=== PATIENT | female | born 1935 | race Caucasian/White ===

== ENCOUNTER → 2024-06-25 | Outpatient (CLI) | payer MEDICARE ==
--- NOTE | 2024-06-25 12:38 | HMCIMG ---
CHEST 2VWS REASON: PLEURAL EFFUSION COMPARISON: None FINDINGS: Two views of the chest were obtained. There is bibasilar atelectasis. There are small bilateral pleural effusions best seen on the lateral view. Heart size is normal. There is no vascular congestion. Mediastinum and bony thorax appear unremarkable. IMPRESSION: 1. Small bilateral pleural effusions with bibasilar atelectasis.
== END | disposition home or self-care (01) ==
LOC: RAH 09:37
PROVIDERS: ATTEND Internal Medicine
DX: J90 Pleural effusion, not elsewhere classified (principal); J98.11 Atelectasis
CPT/HCPCS: 71046

== ENCOUNTER → 2024-07-10 | Outpatient (CLI) | payer MEDICARE ==
[~2024-07-10] MED LIST: ATOR40TA69 PO; CALC-190 PO; CYAN100084 PO; EVER10TA PO; EZET10TA48 PO; LEVO25CA4 PO; PANT40TA PO; POTA-192 PO
--- NOTE | 2024-07-10 09:14 | HMCIMG ---
CHEST 2VWS HISTORY: Malignant primary neoplasm COMPARISON: 06/25/2024 FINDINGS: Frontal and lateral projections of the chest were obtained. Bilateral lower lung pulmonary infiltrates are seen. The heart is not enlarged. Aortic calcifications are seen. Degenerative changes are seen of the thoracolumbar spine. IMPRESSION: 1. Bilateral lower lung pulmonary infiltrates are seen.
== END | disposition home or self-care (01) ==
LOC: RAH 08:19
PROVIDERS: ATTEND Internal Medicine
DX: R91.8 Other nonspecific abnormal finding of lung field (principal); C80.1 Malignant (primary) neoplasm, unspecified; I70.0 Atherosclerosis of aorta; M47.815 Spondylosis without myelopathy or radiculopathy, thoracolumbar region
CPT/HCPCS: 71046

== ENCOUNTER 2024-07-11 13:15 | Inpatient (IN) | payer MEDICARE ==
[~2024-07-11] VITALS: Ht 182.9 cm; Wt 74.8 kg
--- NOTE | 2024-07-11 13:59 | EKG ---
[facility] Test Date: 2024-07-11 Test Time: 13:55:34 Pat Name: TING SAENZ Department: ED Room: Gender: F [place] Hand: [id number] : 1935 Requested By: NATIVIDAD QUEZADA Order Number: [id number] Reading MD: Nithin Chapa Measurements Intervals [place] Rate: 63 P: 0 CT: 0 QRS: 100 QRSD: 147 T: 48 QT: 480 QTc: 492 Interpretive Statements Atrial fibrillation RBBB and LPFB No previous ECG available for comparison Electronically Signed On 07-11-2024 14:20:33 MANAGER SCHEDULING by Nithin Chapa Please click the below link to view image of tracing.
--- NOTE | 2024-07-11 14:11 | ERN ---
General Chief Complaint: Shortness of Breath Stated Complaint: MULTIPLE COMPLAINTS Time Seen by MD: 19:08 Source: patient History of Present Illness Initial Comments PATIENT IS A AN 88-YEAR-OLD FEMALE COMING IN TO BE EVALUATED FOR COUGH AND SHORTNESS OF BREATH. PATIENT STATES HE HAS A HISTORY OF PLEURAL EFFUSIONS. PATIENT RECENTLY GOT A THORACENTESIS BUT STATES HE MIGHT HAVE MORE FLUID. Allergies: Coded Allergies: Morpholine Analogues (Unverified Allergy, Unknown, 07/11/24) codeine (Unverified Allergy, Unknown, 07/11/24) Past Medical History Past Medical History: A-Fib, Cancer, COPD, GI Bleed, High Cholesterol, Heart Disease Medical History Other: SPINAL CA Past Surgical History: Appendectomy, Hysterectomy Surgical History Other: KNEE, BACK SX ROS Dictation CONSTITUTIONAL: NO CHILLS, NO FEVER, NO WEAKNESS, NO DIAPHORESIS, NO MALAISE. HEAD/FACE: NO SIGNS OF TRAUMA. EENT: NO EYE PAIN, NO BLURRED VISION, NO TEARING, NO DOUBLE VISION, NO EAR PAIN, NO EAR DISCHARGE, NO NOSE PAIN, NO NASAL CONGESTION, NO THROAT PAIN, NO THROAT SWELLING, NO MOUTH PAIN. RESPIRATORY: NO COUGH, NO ORTHOPNEA, NO SOB, NO STRIDOR, NO WHEEZING. CARDIOVASCULAR: NO CHEST PAIN, NO EDEMA, NO PALPITATIONS, NO SYNCOPE. GASTROINTESTINAL/ABDOMINAL: NO ABDOMINAL PAIN, NO CONSTIPATION, NO DIARRHEA, NO NAUSEA, NO VOMITING. GENITOURINARY: NO ABNORMAL DISCHARGE, NO DYSURIA, NO FREQUENT URINATION, NO HEMATURIA. NO COMPLAINTS OF PAIN IN THE GENITALS. MUSCULOSKELETAL: NO BACK PAIN, NO GOUT, NO JOINT PAIN, NO JOINT SWELLING, NO MUSCLE PAIN, NO MUSCLE STIFFNESS, NO NECK PAIN. INTEGUMENTARY: NO CHANGE IN COLOR, NO CHANGE IN HAIR/NAILS, NO DRYNESS, NO LESION, NO LUMPS, NO RASH. NEUROLOGICAL/PSYCH: NO ANXIETY, NOT DEPRESSED, NO EMOTIONAL PROBLEM, NO HEADACHE, NO NUMBNESS, NO PRE-EXISTING DEFICIT, NO HISTORY OF SEIZURES, NO TREMORS, NO WEAKNESS. HEMATOLOGIC/LYMPHATIC: NOT ANEMIC, NO HISTORY OF BLOOD CLOTS, NO APPARENT BLEEDING, NO BRUISING, GLANDS NOT SWOLLEN. ALL SYSTEMS NEGATIVE, EXCEPT NOTED. Physical Exam Physical Exam Dictation VITAL SIGNS: REVIEWED. GENERAL APPEARANCE: ALERT, ORIENTED X3, NO ACUTE DISTRESS, OBESE. HEAD AND FACE: NON-TRAUMATIC. EYES: PERRL, PINK CONJUNCTIVAS, EYELID NO TRAUMA, ANTERIOR CHAMBER CLEAR. EARS: PINNAS INTACT AND NO SIGNS OF TRAUMA OR ERYTHEMA. EAR CANALS CLEAR AND NO DISCHARGE. TMS NO ERYTHEMA. NOSE: NO DISCHARGE, NO BLEEDING. OROPHARYNX: MOUTH NORMAL, TEETH NO CARIES, TONGUE PINK. PHARYNX CLEAR, NO ERYTHEMA. TONSILS NO EXUDATES, NO ABSCESSES NOTED. MUCOUS MEMBRANE MOIST. NECK: SUPPLE, NON-TENDER, NO THYROMEGALY, NO MASSES, NO JVD, NO BRUITS. BREAST: DEFERRED. CHEST: NO TENDERNESS, NO CREPITUS, NO PARADOXICAL MOVEMENT, NO RETRACTIONS. LUNGS: CLEAR, WELL-VENTILATED, SYMMETRIC, NO RALES, NO WHEEZING, NO RHONCHI, NO STRIDOR, GOOD BREATH SOUNDS BILATERALLY. HEART: REGULAR RATE, REGULAR RHYTHM, NO MURMUR, NO GALLOPS. VASCULAR: NO PERIPHERAL EDEMA. ABDOMEN: SOFT, POSITIVE BOWEL SOUNDS, NONDISTENDED, NO GUARDING, NONTENDER, NO REBOUND, NO MASSES NO HEPATOMEGALY, NO SPLENOMEGALY, NO BARILLAS'S SIGN, NO HERNIAS. RECTAL: DEFERRED. GENITAL: DEFERRED. NEUROLOGICAL: NORMAL SPEECH, GROSS MOTOR FUNCTION INTACT, GROSS SENSORY FUNCTION INTACT. MUSCULOSKELETAL: NECK NONTENDER, FULL RANGE OF MOTION, BACK NONTENDER, FULL RANGE OF MOTION. EXTREMITIES: NONTENDER, FULL RANGE OF MOTION. SKIN: COLOR PINK, DRY, NO TURGOR, NO RASH, NO LACERATIONS, NO ABRASIONS, NO CONTUSIONS. LYMPHATICS: DEFERRED. Results Laboratory and Microbiology Lab and Micro Result Laboratory Tests Test 07/11/24 14:40 07/11/24 16:07 07/11/24 16:36 White Blood Count 3.5 K/uL (4.8-10.8) L Red Blood Count 3.57 MIL/uL (4.00-5.50) L Hemoglobin 9.1 g/dL (12.0-16.0) L Hematocrit 28.7 % (36-48) L Mean Corpuscular Volume 80.4 fL (79-99) Mean Corpuscular Hemoglobin 25.5 pg (27.0-33.0) L Mean Corpuscular Hemoglobin Concent 31.7 g/dL (32.0-36.0) L Red Cell Distribution Width 17.6 % (11.0-15.5) H Platelet Count 247 K/uL (130-400) Mean Platelet Volume 10.3 fL (7.5-10.5) Immature Granulocyte % (Auto) 0.3 % (0-1) Neutrophils (%) (Auto) 62.4 % (40.0-77.0) Lymphocytes (%) (Auto) 17.5 % (21.0-51.0) L Monocytes (%) (Auto) 18.1 % (3.0-13.0) H Eosinophils (%) (Auto) 1.1 % (0.0-8.0) Basophils (%) (Auto) 0.6 % (0.0-5.0) Neutrophils # (Auto) 2.2 K/uL (1.8-7.7) Lymphocytes # (Auto) 0.6 K/uL (1.0-4.8) L Monocytes # (Auto) 0.6 K/uL (0.1-1.0) Eosinophils # (Auto) 0.04 K/uL (0.00-0.70) Basophils # (Auto) 0.02 K/uL (0.00-0.20) Absolute Immature Granulocyte (auto 0.01 K/uL (0-1) Nucleated Red Blood Cells 0.0 % (0.0-0.19) White Cell Morphology Comment See comments Prothrombin Time 10.3 SEC (9.6-11.6) Prothromb Time International Ratio <= 0.93 (0.85-1.15) Activated Partial Thromboplast Time 27.1 SEC (26.3-35.5) Sodium Level 141 mmol/L (136-145) Potassium Level 3.9 mmol/L (3.5-5.1) Chloride Level 103 mmol/L (101-111) Carbon Dioxide Level 35 mmol/L (21-32) H Blood Urea Nitrogen 41 mg/dL (7-18) H Creatinine 1.4 mg/dL (0.5-1.0) H Glomerular Filtration Rate Calc 36 mL/min (>90) Random Glucose 94 mg/dL (70-105) Total Calcium 8.2 mg/dL (8.5-10.1) L Magnesium Level 2.40 mg/dL (1.80-2.40) Total Creatine Kinase 173 U/L (21-232) Troponin I High Sensitivity 18 ng/L (4-50) B-Type Natriuretic Peptide 136 pg/mL (0-100) H Influenza Type A Antigen Negative For Type A Influenza Type B Antigen Negative For Type B SARS-CoV-2, RNA, NAAT NEGATIVE SARS CoV-2 Urine Color YELLOW (YELLOW) Urine Appearance CLEAR (CLEAR) Urine pH 5.5 (5.0-8.0) Urine Specific [place] 1.011 (1.001-1.031) Urine Protein 20 mg/dL (NEGATIVE) H Urine Glucose (UA) NEGATIVE mg/dL (NEGATIVE) Urine Ketones NEGATIVE mg/dL (NEGATIVE) Urine Occult Blood SMALL (NEGATIVE) H Urine Nitrate NEGATIVE (NEGATIVE) Urine Bilirubin NEGATIVE mg/dL (NEGATIVE) Urine Urobilinogen 0.2 mg/dL (0.2-1.0) Urine Leukocyte Esterase NEGATIVE Fady/uL Urine RBC 6-10 /HPF (0-1) H Urine WBC 2-5 /HPF (0-1) H Urine Squamous Epithelial Cells RARE /HPF (0-2) Urine Bacteria RARE /HPF (None Seen) Urine Other Casts 4 /LPF (None Seen) EKG/XRAY/US/CT/MRI EKG Comment 07/11/2024 TIME 1:55 P.M. VENTRICULAR RATE [address] WAVE ELEVATION OR DEPRESSION X-RAY Comment [place] [id number] [address] IMAGING REPORT Signed PATIENT: TING SAENZ MR#: [id number] : 1935 SEX: F AGE: 88 LOCATION: ED ORDER [id number] STATUS: REG ER REPORT#: [id number] SERVICE 1328 REASON: SOB ORDERING PHYSICIAN: NATIVIDAD QUEZADA MD PROCEDURE: CXR1VW - CHEST 1VW Exam Type: CHEST 1VW Clinical Information: SOB Comparison: None Findings: Pulmonary pattern is as before. No worrisome interval changes have taken place. Impression: Stable exam. DICTATED BY: SANJAY HASTINGS MD DATE: 07/11/241552 ELECTRONICALLY SIGNED BY: SANJAY HASTINGS MD DATE: 07/11/241555 MDM MDM: DIFFERENTIAL DIAGNOSIS: RATIONALE: TESTS CONSIDERED AND ORDERED SECONDARY TO SHARED DECISION MAKING INCLUDE: PREVIOUS OUTSIDE RECORDS REVIEWED: OLD ER VISITS. RISK OF COMPLICATION AND/OR MORBIDITY OR MORTALITY OF PATIENT MANAGEMENT: NONE MEDICATIONS-PER MEDICATION RECONCILIATION NEED FOR HOSPITALIZATION: PATIENT DOES NOT MEET CRITERIA FOR HOSPITALIZATION. NEED FOR EMERGENCY MAJOR/MINOR SURGERY: NO THERE ARE NO SOCIAL CONCERNS WITH THIS PATIENT. PRESCRIPTION DRUG MANAGEMENT PRESCRIPTIONS WILL INCLUDE SYMPTOMATIC CARE PATIENT'S PRIOR EXTERNAL MEDICAL RECORDS FROM OTHER ER VISITS WERE REVIEWED BY ME INDICATED. PRIOR TESTING AND RESULTS FROM PREVIOUS VISITS WERE REVIEWED. PRIOR TESTS WERE TAKEN INTO ACCOUNT WITH MEDICAL DECISION MAKING AND RESOURCE UTILIZATION, INDEPENDENT HISTORIAN/HISTORIANS WERE USED TO OBTAIN COMPLETE MEDICAL HISTORY. I INDEPENDENTLY INTERPRETED THE TEST THAT WERE PERFORMED, RESULTS WERE REVIEWED BY ME AND CONSIDERED FINDINGS ON RADIOLOGY IF ORDERED. MEDICAL MANAGEMENT AND EXAMINATION INTERPRETATION DISCUSSIONS WERE HAD BY ME WITH OTHER QUALIFIED HEALTHCARE PROFESSIONALS INDICATED FOR THE PATIENT'S CARE. ED Course Orders Procedure Category Date Status Time Cbc With Differential LAB 07/11/24 Complete 13:28 Prothrombin Time With LAB 07/11/24 Complete INR 13:28 B-Type Natriuretic LAB 07/11/24 Complete Peptide 13:28 Chest 1vw RAD 07/11/24 Resulted 13:28 12 Lead Ekg Tracing- EKG 07/11/24 Resulted Technical 13:28 Magnesium LAB 07/11/24 Complete 13:28 Creatine Kinase, Total LAB 07/11/24 Complete 13:28 Troponin I High LAB 07/11/24 Complete Sensitivity 13:28 Urinalysis Profile LAB 07/11/24 Complete 13:28 Partial LAB 07/11/24 Complete Thromboplastin Time 13:28 Basic Metabolic Panel LAB 07/11/24 Complete 13:28 Covid Rna Naat LAB 07/11/24 Complete 13:28 Influenza Type A & B, LAB 07/11/24 Complete Rapid 13:28 Ct Chest W/O Contrast CT 07/11/24 Resulted 17:10 Zosyn 3.375gm+Ns 50ml PHA 07/11/24 Complete (Zosyn 3.375gm+Ns 20:00 Current Medications Medications (Trade) Dose Ordered Sig/Lesly Route PRN Reason Start Time Stop Time Status Last Admin Dose Admin Piperacillin Sod/ Tazobactam Sod (Zosyn 3.375gm+NS 50ml) 3.375 gm ONCE ONCE IV 07/11/24 20:00 07/11/24 20:01 DC 07/11/24 21:09 Vital Signs Date Time Temp Pulse Resp B/P (MAP) Pulse Ox O2 Delivery O2 Flow Rate FiO2 07/11/24 19:30 98.6 87 18 180/86 96 Room Air* 0 21 07/11/24 17:30 98.8 87 18 171/92 96 Room Air* 0 21 07/11/24 16:09 87 18 162/80 98 Room Air* 0 21 07/11/24 13:49 98.8 76 16 147/90 96 Room Air 0 7:00 p.m. patient was signed out to me by a.[email or web address] physician this is an 88-year-old female who presented to the emergency room complaining of shortness of breath and possibility of recurrent pleural fluid. Apparently she underwent thoracentesis and she felt like her fluid came back. She had severe cough and congestion along with the shortness of breath. Labs reviewed CBC showed a white count of 3.5 hemoglobin 9.1 BNP 7 was significant for bicarb of 35 BUN and creatinine of 41 and 1.4 Chest x-ray showed a right basilar infiltrate but I did not appreciate any large effusion. CT scan of the chest was done which showed right basilar consolidation along with a pleural effusion but a small pleural effusion on the left side. Patient will be admitted to the hospital-patient was accepted by for admission and further management. DX & DISP Disposition: Inpatient Departure Impression: Primary Impression: Right lower lobe pneumonia Additional Impressions: Recurrent right pleural effusion, Atrial fibrillation with rapid ventricular response, Uncontrolled hypertension, History of COPD, Acute kidney injury Condition: Stable Additional Instructions: Patient was informed of all the diagnostic labs and procedures conducted in the emergency room today and demonstrated understanding of the results. I personally reviewed and interpreted all the diagnostic exams performed in the ER today. The patient will be admitted to the hospital for further treatment and evaluation. Disposition-admit to facility Condition-stable/guarded Course-uncertain at this time Pain status-decreased Assessment-exam unchanged Admission Certification- I certify that the patients status is appropriate and is based on my best clinical judgment and the patient's condition as documented in the medical records Referrals: KB MONTES MD (PCP) NATIVIDAD QUEZADA MD Jul 11, 2024 14:11 JERRI KUMAR MD Jul 12, 2024 01:49
[2024-07-11 14:55] LABS: BASOPHILS # (AUTO) 0.02 K/uL (0.00-0.20); BASOPHILS % (AUTO) 0.6 % (0.0-5.0); EOSINOPHILS # (AUTO) 0.04 K/uL (0.00-0.70); EOSINOPHILS % (AUTO) 1.1 % (0.0-8.0); HEMATOCRIT 28.7 % (36-48); IMMATURE GRANULOCYTE ABSOLUTE 0.01 K/uL (0-1); LYMPHOCYTES # (AUTO) 0.6 K/uL (1.0-4.8); LYMPHOCYTES % (AUTO) 17.5 % (21.0-51.0); MEAN CORPUSCULAR HEMOGLOBIN 25.5 pg (27.0-33.0); MEAN CORPUSCULAR HGB CONC 31.7 g/dL (32.0-36.0); MEAN CORPUSCULAR VOLUME 80.4 fL (79-99); MONOCYTES # (AUTO) 0.6 K/uL (0.1-1.0); MONOCYTES % (AUTO) 18.1 % (3.0-13.0); NEUTROPHILS # (AUTO) 2.2 K/uL (1.8-7.7); NEUTROPHILS % (AUTO) 62.4 % (40.0-77.0); PLATELET COUNT (AUTO) 247 K/uL (130-400); RED BLOOD CELL COUNT(AUTO) 3.57 MIL/uL (4.00-5.50); RED CELL DISTRIBUTION WIDTH 17.6 % (11.0-15.5); WHITE BLOOD COUNT (AUTO) 3.5 K/uL (4.8-10.8)
[2024-07-11 14:59] LABS: CREATININE 1.4 mg/dL (0.5-1.0); POTASSIUM 3.9 mmol/L (3.5-5.1)
[2024-07-11 15:03] LABS: INR <= 0.93 (0.85-1.15); PROTHROMBIN TIME 10.3 SEC (9.6-11.6)
[2024-07-11 15:04] LABS: MAGNESIUM 2.4 mg/dL (1.80-2.40); PARTIAL THROMBOPLASTIN TIME 27.1 SEC (26.3-35.5)
[2024-07-11 15:12] LABS: B-TYPE NATRIURETIC PEPTIDE 136 pg/mL (0-100)
--- NOTE | 2024-07-11 15:56 | HMCIMG ---
Exam Type: CHEST 1VW Clinical Information: SOB Comparison: None Findings: Pulmonary pattern is as before. No worrisome interval changes have taken place. Impression: Stable exam.
[2024-07-11 17:01] LABS: SARS-CoV-2, RNA, NAAT NEGATIVE SARS CoV-2 (NEGATIVE)
[2024-07-11 17:06] LABS: INFLUENZA TYPE A Negative For Type A (NEGATIVE); INFLUENZA TYPE B Negative For Type B (NEGATIVE)
[2024-07-11 17:30] LABS: APPEARANCE,URINE CLEAR (CLEAR); BILIRUBIN,URINE NEGATIVE (NEGATIVE); COLOR,URINE YELLOW (YELLOW); GLUCOSE, URINE (UA) NEGATIVE (NEGATIVE); KETONES,URINE NEGATIVE (NEGATIVE); LEUKOCYTE ESTERASE ,URINE NEGATIVE Leu/uL (NEGATIVE); NITRATE,URINE NEGATIVE (NEGATIVE); OCCULT BLOOD,URINE SMALL (NEGATIVE); PH,URINE 5.5 (5.0-8.0); PROTEIN,URINE 20 mg/dL (NEGATIVE); UROBILINOGEN,URINE 0.2 mg/dL (0.2-1.0)
[2024-07-11 17:35] LABS: ADD UA MICROSCOPIC YES
[2024-07-11 17:40] LABS: BACTERIA,URINE RARE /HPF (None Seen); MUCUS,URINE RARE LPF (None Seen); OTHER CASTS, URINE 4 /LPF (None Seen); SQUAMOUS EPITHELIAL CELL,UR RARE /HPF (0-2)
--- NOTE | 2024-07-11 19:00 | HMCIMG ---
CT CHEST W/O CONTRAST HISTORY: RIGHT PLEURAL EFFUSIONS TECHNIQUE: CT CHEST W/O CONTRAST. Coronal and sagittal reformats were obtained. CT was performed with one or more of the following dose reduction techniques: Automated exposure control, adjustment of the mA and/or kV according to the patient's size, or use of the iterative reconstruction technique. FINDINGS: The noncontrast nature this study limits evaluation of the mediastinal structures. Patchy airspace consolidation in the right lower lobe consistent with pneumonia. Moderate right and small left pleural effusion is seen. The heart is dilated. Trace pericardial effusion is seen. There is atherosclerotic changes of the aorta and coronary arteries. There is no acute findings in the visualized upper abdomen. Degenerative changes of the spine are noted. IMPRESSION: Patchy airspace consolidation in the right lower lobe consistent with pneumonia. Moderate right and small left pleural effusion is seen. The heart is dilated.
[2024-07-11] MEDS ORDERED: acetaMINOPHEN 325 MG TAB PO PRN (20:30)
[2024-07-11] MEDS ORDERED: ondanSETRON 4MG INJ IVP PRN (20:30)
[2024-07-11] MEDS: DOXYCYCLINE HYCLATE 100 MG TABLET PO SCH (21:09)
[2024-07-11] MEDS: ZOSYN 3.375GM +NS 50ML IV ONE (21:09)
[2024-07-11] MEDS: furoSEMIDE 40MG VIAL IV ONE (21:10)
[2024-07-11 21:29] VITALS: PULSE 74; RESP 22; O2SAT 95
[2024-07-11] MEDS: IpraTROPium/alBUTERol SULFATE 3 ML SOLUTION IH PRN (21:29)
--- NOTE | 2024-07-11 23:31 | NUR ---
PT CARE ASSUMED AT THIS TIME
[2024-07-12] VITALS (7 sets, daily range): BP systolic 151–154; BP diastolic 75; PULSE 76–102; RESP 20–21; TEMP 97.8–98.2; O2SAT 95–98
--- NOTE | 2024-07-12 01:10 | CONS ---
[facility] CONSULTATION NOTE Date Patient Seen: Jul 11, 2024 Time of Visit: 2229 Supervising Physician: [Dr. Pee Chang ] Reason for Consultation: Pulmo management ] Primary Care Physician: [Dr. Chin ] Outpatient Specialists: [ ] Inpatient Consults: [ BIS team: pulmo] PROBLEM LIST: Right lower lobe [id number] Moderate right and small left pleural effusion -POA Persistent dyspnea, worst on exertion-POA CONSTANCE-POA Normocytic, hypochromic anemia-POA Leukopenia, mild-POA HX of large pleural effusion with thoracentesis PLAN: -Titrate oxygen to keep sats >92%: currently on room air -Obtain pneumo studies -IV Lasix 40 mg BID -Continue IV Zosyn and Doxycycline for CAP coverage -Duoneb PRN for SOB/wheeze -Obtain D-dimer, if significant, consider CTA chest versus V/Q scan pending improvement on her kidney function -Incentive spirometer -Manage cough and fever PRN -the rest of medical management per primary HPI: Patient is extremely hard of hearing. Per ED notes: "PATIENT IS A AN 88-YEAR-OLD FEMALE COMING IN TO BE EVALUATED FOR COUGH AND SHORTNESS OF BREATH. PATIENT STATES HE HAS A HISTORY OF PLEURAL EFFUSIONS. PATIENT RECENTLY GOT A THORACENTESIS BUT STATES HE MIGHT HAVE MORE FLUID." BIS team was consulted for pulmonary consult. Chest CT revealed moderate right and small left pleural effusion with right lower lobe pneumonia. She was started on IV Zosyn and doxycycline. At the time of my evaluation, patient is resting comfortably on the bed, denies chest pain or back pain, hemodynamically stable and in no acute distress. She is currently on room air with lung sounds diminished bilaterally. She reports productive cough with clear phlegm. Negative for BLE edema. Goals of care were discussed with the patient verbalizes understanding and agreement. PAST MEDICAL HX: see above PAST SURGICAL HX: noncontributory SOCIAL HISTORY: No tobacco, ETOH, or illicit drug use Coded Allergies: Morpholine Analogues (Unverified Allergy, Unknown, 07/11/24) codeine (Unverified Allergy, Unknown, 07/11/24) REVIEW OF SYSTEMS: 12 point ROS reviewed with patient. Pertinent positives mentioned above. Otherwise negative. PHYSICAL EXAM: GENERAL: alert, weak, awake oriented x 3 HEENT: EOMI, Sclera non icteric, moist mucosa , extremely hard of hearing NECK: Supple, no JVD, trachea midline LUNGS: Diminished breath sounds bilaterally. No wheezes, rhonchi or rales HEART: Regular rate and rhythm. Normal S1 and S2, without murmurs ABD: Abdomen soft, nontender. Bowel sounds present EXT: No clubbing cyanosis or edema NEURO: Alert and oriented to person, follows commands Vital Signs (last 8hr) Date Time Temp Pulse Resp B/P (MAP) Pulse Ox O2 Delivery O2 Flow Rate FiO2 07/12/24 00:41 76 20 N/A Room Air 0.0 21 07/12/24 00:41 76 20 07/12/24 00:18 97.2 71 18 139/68 96 Room Air* 0 21 07/11/24 21:29 74 22 07/11/24 21:29 74 22 N/A Room Air 0.0 21 07/11/24 19:30 98.6 87 18 180/86 96 Room Air* 0 21 07/11/24 17:30 98.8 87 18 171/92 96 Room Air* 0 21 LABS: Hematology Labs: Test 07/11/24 14:40 Range/Units White Blood Count 3.5 L 4.8-10.8 K/uL Red Blood Count 3.57 L 4.00-5.50 MIL/uL Hemoglobin 9.1 L 12.0-16.0 g/dL Hematocrit 28.7 L 36-48 % Mean Corpuscular Volume 80.4 79-99 fL Mean Corpuscular Hemoglobin 25.5 L 27.0-33.0 pg Mean Corpuscular Hemoglobin Concent 31.7 L 32.0-36.0 g/dL Red Cell Distribution Width 17.6 H 11.0-15.5 % Platelet Count 247 130-400 K/uL Mean Platelet Volume 10.3 7.5-10.5 fL Immature Granulocyte % (Auto) 0.3 0-1 % Neutrophils (%) (Auto) 62.4 40.0-77.0 % Lymphocytes (%) (Auto) 17.5 L 21.0-51.0 % Monocytes (%) (Auto) 18.1 H 3.0-13.0 % Eosinophils (%) (Auto) 1.1 0.0-8.0 % Basophils (%) (Auto) 0.6 0.0-5.0 % Neutrophils # (Auto) 2.2 1.8-7.7 K/uL Lymphocytes # (Auto) 0.6 L 1.0-4.8 K/uL Monocytes # (Auto) 0.6 0.1-1.0 K/uL Eosinophils # (Auto) 0.04 0.00-0.70 K/uL Basophils # (Auto) 0.02 0.00-0.20 K/uL Absolute Immature Granulocyte (auto 0.01 0-1 K/uL Nucleated Red Blood Cells 0.0 0.0-0.19 % White Cell Morphology Comment See comments Chemistry Labs: Test 07/11/24 14:40 Range/Units Sodium Level 141 136-145 mmol/L Potassium Level 3.9 3.5-5.1 mmol/L Chloride Level 103 101-111 mmol/L Carbon Dioxide Level 35 H 21-32 mmol/L Blood Urea Nitrogen 41 H 7-18 mg/dL Creatinine 1.4 H 0.5-1.0 mg/dL Glomerular Filtration Rate Calc 36 >90 mL/min Random Glucose 94 70-105 mg/dL Total Calcium 8.2 L 8.5-10.1 mg/dL Magnesium Level 2.40 1.80-2.40 mg/dL Total Creatine Kinase 173 21-232 U/L Troponin I High Sensitivity 18 4-50 ng/L B-Type Natriuretic Peptide 136 H 0-100 pg/mL Coagulation Labs: Test 07/11/24 14:40 Range/Units Prothrombin Time 10.3 9.6-11.6 SEC Prothromb Time International Ratio <= 0.93 0.85-1.15 Activated Partial Thromboplast Time 27.1 26.3-35.5 SEC DIAGNOSTICS / RADIOLOGY RESULTS: [ ] PLAN NEURO: Minimize central acting medications as possible. Maintain fall precautions, adequate lighting during the day PULMONARY: Supplemental 02 as needed. Maintain aspiration precautions at all times CARDIOVASCULAR: Follow hemodynamics. Vital signs per facility protocol GI & NUTRITION: Continue with nutritional support. Continue stool softeners and laxatives as needed. KIDNEYS & ELECTROLYTES: Strict monitoring of intake, output and overall fluid balance. Avoid nephrotoxic medications to the extent possible. Medications to be dosed according to renal function. Monitor electrolytes and replace as needed ENDOCRINE: Maintain blood glucose between 100-180 at all times. Hypoglycemia protocol in place INFECTIOUS DISEASE: Trend temperature, WBC and procalcitonin level Follow cultures, deescalate antibiotics as soon as possible. Panculture if new onset fever ONCOLOGY/HEMATOLOGY/COAGULATION: Monitor for s/s of bleeding Monitor hemoglobin, coagulation studies as needed SKIN: Pressure ulcer prevention per facility protocol Specialty mattress ORTHO/REHAB: Continue PT/OT Prophylaxis: Continue GI and DVT prophylaxis Code Status: Full Resuscitation Disposition: TBD Other: Total patient care time: 35 minutes VENKATESH CONNOR Jul 12, 2024 01:10
--- NOTE | 2024-07-12 02:29 | NUR ---
MD HOLT MADE AWARE OF CRITICAL LAB D-DIMER. ORDERS GIVEN AT THIS TIME.
[2024-07-12] MEDS: ZOSYN 3.375GM +NS 50ML IV SCH (05:53)
--- NOTE | 2024-07-12 07:14 | NUR ---
REPORT GIVEN TO RHODA DENSON AT THIS TIME
[2024-07-12 07:24] LABS: BASOPHILS # (AUTO) 0.02 K/uL (0.00-0.20); BASOPHILS % (AUTO) 0.6 % (0.0-5.0); EOSINOPHILS # (AUTO) 0.03 K/uL (0.00-0.70); EOSINOPHILS % (AUTO) 0.9 % (0.0-8.0); HEMATOCRIT 26.2 % (36-48); IMMATURE GRANULOCYTE ABSOLUTE 0.01 K/uL (0-1); LYMPHOCYTES # (AUTO) 0.6 K/uL (1.0-4.8); LYMPHOCYTES % (AUTO) 18.9 % (21.0-51.0); MEAN CORPUSCULAR HEMOGLOBIN 25.2 pg (27.0-33.0); MEAN CORPUSCULAR HGB CONC 32.4 g/dL (32.0-36.0); MEAN CORPUSCULAR VOLUME 77.7 fL (79-99); MONOCYTES # (AUTO) 0.6 K/uL (0.1-1.0); MONOCYTES % (AUTO) 18.3 % (3.0-13.0); PLATELET COUNT (AUTO) 239 K/uL (130-400); RED BLOOD CELL COUNT(AUTO) 3.37 MIL/uL (4.00-5.50); RED CELL DISTRIBUTION WIDTH 17.7 % (11.0-15.5); WHITE BLOOD COUNT (AUTO) 3.3 K/uL (4.8-10.8)
[2024-07-12 07:35] LABS: CREATININE 1.4 mg/dL (0.5-1.0); MAGNESIUM 2.4 mg/dL (1.80-2.40); POTASSIUM 3.4 mmol/L (3.5-5.1)
[2024-07-12] MEDS: furoSEMIDE 40MG VIAL IV SCH (08:58)
--- NOTE | 2024-07-12 11:22 | PN ---
[facility] PROGRESS NOTE Date Patient Seen: Jul 12, 2024 Time of Visit: 11:14 Supervising Physician: [Dr Kevin Chang Primary Care Physician: [Dr. Chin ] Outpatient Specialists: [ ] Inpatient Consults: [ BIS team: pulmo] PROBLEM LIST: Right lower lobe vqhbuixie-[id number]-[id number]-POA Moderate right and small left pleural effusion -POA Persistent dyspnea, worst on exertion-POA CONSTANCE-POA Normocytic, hypochromic anemia-POA Leukopenia, mild-POA HX of large pleural effusion with thoracentesis - A-Fib - not on anticoagulation d/t hx of bleed PLAN SUMMARY: Supplemental oxygen as needed Patient currently on room air Continue IV Lasix 40 mg b.i.d. Continue Zosyn Continue doxycycline Chest x-ray in a.m. If effusion persists patient may require thoracentesis. INTERVAL HISTORY: Patient is extremely hard of hearing. Per ED notes: "PATIENT IS A AN 88-YEAR-OLD FEMALE COMING IN TO BE EVALUATED FOR COUGH AND SHORTNESS OF BREATH. PATIENT STATES HE HAS A HISTORY OF PLEURAL EFFUSIONS. PATIENT RECENTLY GOT A THORACENTESIS BUT STATES HE MIGHT HAVE MORE FLUID." BIS team was consulted for pulmonary consult. Chest CT revealed moderate right and small left pleural effusion with right lower lobe pneumonia. She was started on IV Zosyn and doxycycline. At the time of my evaluation, patient is resting comfortably on the bed, denies chest pain or back pain, hemodynamically stable and in no acute distress. She is currently on room air with lung sounds diminished bilaterally. She reports productive cough with clear phlegm. Negative for BLE edema. Goals of care were discussed with the patient verbalizes understanding and agreement. 07/12 - patient is seen and evaluated in the ED with no signs of acute distress. Patient is sitting up in a stretcher remains on room air. Patient does report dyspnea with exertion. Patient reports she has been receiving thoracentesis weekly for the past month. Patient is a Winter [place] and none of her physicians are local. Patient also reported she had a history of cancer and his currently on treatment however does not recall what type of cancer she has nor the name of the medication she takes. Patient reports that pleural fluid from previous th oracentesis have been sent out for analysis and have been negative for metastatic disease. Patient reports she takes torsemide at home. Patient's CT scan of the chest did show right lower lobe pneumonia and moderate right and small left pleural effusions. Patient was started on IV Lasix overnight and diurese well. We will continue Lasix for the next24 hours. We will obtain a c hest x-ray in a.m.. If her effusion persist we will arrange IR for thoracentesis in the a.m.. Vital signs are stable. Labs are within normal limits. We will continue to follow with you. REVIEW OF SYSTEMS: 12 point ROS reviewed with patient. Pertinent positives mentioned above. Otherwise negative. PHYSICAL EXAM: GENERAL: alert, weak, awake oriented x 3 HEENT: EOMI, Sclera non icteric, moist mucosa , extremely hard of hearing NECK: Supple, no JVD, trachea midline LUNGS: Diminished breath sounds bilaterally. No wheezes, rhonchi or rales HEART: Regular rate and rhythm. Normal S1 and S2, without murmurs ABD: Abdomen soft, nontender. Bowel sounds present EXT: No clubbing cyanosis or edema NEURO: Alert and oriented to person, follows commands Vital Signs (last 8hr) Date Time Temp Pulse Resp B/P (MAP) Pulse Ox O2 Delivery O2 Flow Rate FiO2 07/12/24 09:45 84 16 133/62 96 Room Air* 0 21 07/12/24 07:48 70 18 139/86 96 Room Air* 0 21 07/12/24 07:42 77 20 N/A Room Air 21 07/12/24 07:00 90 16 149/65 95 Room Air* 0 21 07/12/24 06:40 76 20 07/12/24 05:40 75 15 154/68 94 Room Air* 0 21 07/12/24 03:25 73 16 131/63 95 Room Air* 0 21 LABS: Hematology Labs: Test 07/12/24 07:04 07/11/24 14:40 Range/Units White Blood Count 3.3 L 4.8-10.8 K/uL Red Blood Count 3.37 L 4.00-5.50 MIL/uL Hemoglobin 8.5 L 12.0-16.0 g/dL Hematocrit 26.2 L 36-48 % Mean Corpuscular Volume 77.7 L 79-99 fL Mean Corpuscular Hemoglobin 25.2 L 27.0-33.0 pg Mean Corpuscular Hemoglobin Concent 32.4 32.0-36.0 g/dL Red Cell Distribution Width 17.7 H 11.0-15.5 % Platelet Count 239 130-400 K/uL Mean Platelet Volume 10.4 7.5-10.5 fL Immature Granulocyte % (Auto) 0.3 0-1 % Neutrophils (%) (Auto) 61.0 40.0-77.0 % Lymphocytes (%) (Auto) 18.9 L 21.0-51.0 % Monocytes (%) (Auto) 18.3 H 3.0-13.0 % Eosinophils (%) (Auto) 0.9 0.0-8.0 % Basophils (%) (Auto) 0.6 0.0-5.0 % Neutrophils # (Auto) 2.0 1.8-7.7 K/uL Lymphocytes # (Auto) 0.6 L 1.0-4.8 K/uL Monocytes # (Auto) 0.6 0.1-1.0 K/uL Eosinophils # (Auto) 0.03 0.00-0.70 K/uL Basophils # (Auto) 0.02 0.00-0.20 K/uL Absolute Immature Granulocyte (auto 0.01 0-1 K/uL Nucleated Red Blood Cells 0.0 0.0-0.19 % White Cell Morphology Comment See comments Chemistry Labs: Test 07/12/24 07:04 07/11/24 14:40 Range/Units Sodium Level 142 136-145 mmol/L Potassium Level 3.4 L 3.5-5.1 mmol/L Chloride Level 104 101-111 mmol/L Carbon Dioxide Level 33 H 21-32 mmol/L Blood Urea Nitrogen 36 H 7-18 mg/dL Creatinine 1.4 H 0.5-1.0 mg/dL Glomerular Filtration Rate Calc 36 >90 mL/min Random Glucose 91 70-105 mg/dL Total Calcium 8.3 L 8.5-10.1 mg/dL Magnesium Level 2.40 1.80-2.40 mg/dL Total Creatine Kinase 173 21-232 U/L Troponin I High Sensitivity 18 4-50 ng/L B-Type Natriuretic Peptide 136 H 0-100 pg/mL Coagulation Labs: Test 07/12/24 01:30 07/11/24 14:40 Range/Units D-Dimer Quantitative (PE/DVT) 1304 *H 0-500 ng/mL Prothrombin Time 10.3 9.6-11.6 SEC Prothromb Time International Ratio <= 0.93 0.85-1.15 Activated Partial Thromboplast Time 27.1 26.3-35.5 SEC DIAGNOSTICS / RADIOLOGY RESULTS: PATIENT: TING SAENZ MR#: [id number] : 1935 SEX: F AGE: 88 LOCATION: [facility] ORDER 16 STATUS: REG ER REPORT#: [id number] SERVICE 09 REASON: RIGHT PLEURAL EFFUSIONS ORDERING PHYSICIAN: NATIVIDAD QUEZADA MD PROCEDURE: CHEST WO - CT CHEST W/O CONTRAST CT CHEST W/O CONTRAST HISTORY: RIGHT PLEURAL EFFUSIONS TECHNIQUE: CT CHEST W/O CONTRAST. Coronal and sagittal reformats were obtained. CT was performed with one or more of the following dose reduction techniques: Automated exposure control, adjustment of the mA and/or kV according to the patient's size, or use of the iterative reconstruction technique. FINDINGS: The noncontrast nature this study limits evaluation of the mediastinal structures. Patchy airspace consolidation in the right lower lobe consistent with pneumonia. Moderate right and small left pleural effusion is seen. The heart is dilated. Trace pericardial effusion is seen. There is atherosclerotic changes of the aorta and coronary arteries. There is no acute findings in the visualized upper abdomen. Degenerative changes of the spine are noted. IMPRESSION: Patchy airspace consolidation in the right lower lobe consistent with pneumonia. Moderate right and small left pleural effusion is seen. The heart is dilated. DICTATED BY: SAHRA CHAVEZ MD DATE: 07/11/241855 ELECTRONICALLY SIGNED BY: SAHRA CHAVEZ MD DATE: 07/11/241899 PLAN NEURO: Minimize central acting medications as possible. Maintain fall precautions, adequate lighting during the day PULMONARY: Supplemental 02 as needed. Maintain aspiration precautions at all times CARDIOVASCULAR: Follow hemodynamics. Vital signs per facility protocol GI & NUTRITION: Continue with nutritional support. Continue stool softeners and laxatives as needed. KIDNEYS & ELECTROLYTES: Strict monitoring of intake, output and overall fluid balance. Avoid nephrotoxic medications to the extent possible. Medications to be dosed according to renal function. Monitor electrolytes and replace as needed ENDOCRINE: Maintain blood glucose between 100-180 at all times. Hypoglycemia protocol in place INFECTIOUS DISEASE: Trend temperature, WBC and procalcitonin level Follow cultures, deescalate antibiotics as soon as possible. Panculture if new onset fever ONCOLOGY/HEMATOLOGY/COAGULATION: Monitor for s/s of bleeding Monitor hemoglobin, coagulation studies as needed SKIN: Pressure ulcer prevention per facility protocol Specialty mattress ORTHO/REHAB: Continue PT/OT Prophylaxis: Continue GI and DVT prophylaxis Code Status: Full Resuscitation Disposition: As per attending Other: Total patient care time: 35 minutes ATTESTATION BY PHYSICIAN The patient has been seen and evaluated, the case has been discussed with the MINE WEDGE SAWYER, I agree with the clinical findings and plan of care. Pee Chang MD,CONOR N MINE WEDGE SAWYER Jul 12, 2024 11:22
[2024-07-12 15:41] LABS: MYCOPLASMA AB IGM NEGATIVE (NEGATIVE)
--- NOTE | 2024-07-12 18:08 | NUR ---
INITIAL/DCP HOME Met w pt this afternoon to discuss dcp. Pt admitted w PNA. She is a [place] from [place]. Her sister in law Linda is currently [place] w her. Pt normally lives alone. She uses a walker for ambulation and is independent w ADLs. Pt is able to drive where needed. DME includes a wc and cane. Her preferred pharmacy is [facility]. Pt states that her dtrs are also coming down in July. Discharge goal is to return home. Addendum: 07/12/24 at 1811 by YELITZA DURAN CM Amended: Links added.
--- NOTE | 2024-07-12 18:48 | NUR ---
GAVE REPORT TO GENE UGARTE , NO CONCERNS VOICED
--- NOTE | 2024-07-12 19:58 | HP ---
INFECTIOUS DISEASE HISTORY & PHYSICAL NOTE Date of Service: Jul 12, 2024 HISTORY OF PRESENT ILLNESS: An 88-year-old [place] with past medical history of pleural effusions with multiple thoracentesis with the last recently done in May of 2024, Spinal cancer, Atrial fibrillation, CAD, COPD and Hypercholesterolemia who presented to the emergency room with chief complaint of shortness of breaths and productive cough. No fever or chills reported. Patient is saturating above 92% on room air. Patient was tested for influenza and COVID-19 virus and results were negative. A CT of the chest done on admission showed bilateral pleural effusions and right lower lobe pneumonia. WBC was 3.5. Patient was started on Zosyn IV every 8 hours and doxycycline p.o. b.i.d. Patient had an elevated D-dimer reading of 1304, will obtain a V/Q scan. Neurosurgery Spine Physician was consulted. On examination in room ED 20 patient is awake, alert and oriented x3. Crackles bilaterally on auscultation. Having coughing episodes. Patient has been started on bronchodilators. Patient denying dyspnea at this time. No fever. Patient's BUN is 36 and a creatinine 1.4. Patient denying nausea or vomiting. We will continue to monitor renal function. REVIEW OF SYSTEMS CONSTITUTIONAL: Denies fever, chills, or fatigue. HEAD/FACE: No signs of trauma. EENT: Denies eye pain, blurred vision, double vision, or light sensitivity. Hard of hearing, uses hearing aids. RESPIRATORY: Positive for shortness of breath and cough. CARDIOVASCULAR: Denies chest pain, palpitation, syncope GASTROINTESTINAL/ABDOMINAL: Denies abdominal pain, constipation, diarrhea, nausea or vomiting. GENITOURINARY: Denies dysuria or hematuria. MUSCULOSKELETAL: Denies joint pain, tenderness, or trauma. INTEGUMENTARY: Denies rash or itchiness. NEUROLOGICAL/PSYCH: Denies anxiety, depression, heat or cold intolerance. PAST MEDICAL HISTORY: History of pleural effusions with multiple thoracentesis with the last one in May of 2024. Spinal cancer. Atrial fibrillation. CAD. Hypercholesterolemia. COPD. PAST SURGICAL HISTORY: Hysterectomy. Appendectomy. Back surgery. PAST SOCIAL HISTORY: Denied current use of tobacco, alcohol or any other illicit drug. FAMILY HISTORY: Noncontributory. Coded Allergies: Morpholine Analogues (Unverified Allergy, Unknown, 07/11/24) codeine (Unverified Allergy, Unknown, 07/11/24) PHYSICAL EXAM EYES: Anicteric. Pupils equal and reactive. HENT: No oral thrush seen, moist Oral mucosa. Hard of hearing, uses hearing aids. NECK: Supple, no JVD or thyromegaly. LUNGS: Good air entry. Crackles bilaterally. Coughing episodes. CARDIOVASCULAR: S1, S2 regular. No murmur heard. ABDOMEN: Soft, non tender, bowel sounds present, no organomegaly. CENTRAL NERVOUS SYSTEM: Awake, alert, oriented x 3. SKIN: No rashes, no swelling. LYMPHATICS: No peripheral lymphadenopathy. MUSCULOSKELETAL: No joint swelling, erythema or tenderness. EXTREMITIES: No cyanosis or clubbing. BACK: No deformity, no pressure ulcer. GENITOURINARY: No dysuria or hematuria. Vital Sign (Last 12 Hours) 07/12/24 07/12/24 07/12/24 07/12/24 09:45 10:45 11:17 11:45 Pulse 84 91 85 80 Resp 16 17 20 17 B/P (MAP) 133/62 137/59 124/68 Pulse Ox 96 95 96 O2 Delivery Room Air* Room Air* Room Air* O2 Flow Rate 0 0 0 FiO2 21 21 21 07/12/24 07/12/24 07/12/24 07/12/24 12:45 15:32 17:22 18:23 Temp 97.5 Pulse 89 71 80 85 Resp 17 17 18 17 B/P (MAP) 118/67 127/67 151/76 158/88 Pulse Ox 96 99 96 98 O2 Delivery Room Air* Room Air* Room Air* Room Air* O2 Flow Rate 0 0 0 0 FiO2 21 21 21 21 07/12/24 19:10 Temp 98.2 Pulse 102 Resp 21 B/P (MAP) 151/75 Pulse Ox 96 O2 Delivery Room Air LABS: Laboratory: Test 07/12/24 07:04 07/12/24 01:30 07/11/24 16:36 07/11/24 16:07 Range/Units White Blood Count 3.3 L 4.8-10.8 K/uL Red Blood Count 3.37 L 4.00-5.50 MIL/uL Hemoglobin 8.5 L 12.0-16.0 g/dL Hematocrit 26.2 L 36-48 % Mean Corpuscular Volume 77.7 L 79-99 fL Mean Corpuscular Hemoglobin 25.2 L 27.0-33.0 pg Mean Corpuscular Hemoglobin Concent 32.4 32.0-36.0 g/dL Red Cell Distribution Width 17.7 H 11.0-15.5 % Platelet Count 239 130-400 K/uL Mean Platelet Volume 10.4 7.5-10.5 fL Immature Granulocyte % (Auto) 0.3 0-1 % Neutrophils (%) (Auto) 61.0 40.0-77.0 % Lymphocytes (%) (Auto) 18.9 L 21.0-51.0 % Monocytes (%) (Auto) 18.3 H 3.0-13.0 % Eosinophils (%) (Auto) 0.9 0.0-8.0 % Basophils (%) (Auto) 0.6 0.0-5.0 % Neutrophils # (Auto) 2.0 1.8-7.7 K/uL Lymphocytes # (Auto) 0.6 L 1.0-4.8 K/uL Monocytes # (Auto) 0.6 0.1-1.0 K/uL Eosinophils # (Auto) 0.03 0.00-0.70 K/uL Basophils # (Auto) 0.02 0.00-0.20 K/uL Absolute Immature Granulocyte (auto 0.01 0-1 K/uL Nucleated Red Blood Cells 0.0 0.0-0.19 % Sodium Level 142 136-145 mmol/L Potassium Level 3.4 L 3.5-5.1 mmol/L Chloride Level 104 101-111 mmol/L Carbon Dioxide Level 33 H 21-32 mmol/L Blood Urea Nitrogen 36 H 7-18 mg/dL Creatinine 1.4 H 0.5-1.0 mg/dL Glomerular Filtration Rate Calc 36 >90 mL/min Random Glucose 91 70-105 mg/dL Total Calcium 8.3 L 8.5-10.1 mg/dL Magnesium Level 2.40 1.80-2.40 mg/dL D-Dimer Quantitative (PE/DVT) 1304 *H 0-500 ng/mL Mycoplasma pneumoniae IgM Antibody NEGATIVE NEGATIVE Urine Color YELLOW YELLOW Urine Appearance CLEAR CLEAR Urine pH 5.5 5.0-8.0 Urine Specific [place] 1.011 1.001-1.031 Urine Protein 20 H NEGATIVE mg/dL Urine Glucose (UA) NEGATIVE NEGATIVE mg/dL Urine Ketones NEGATIVE NEGATIVE mg/dL Urine Occult Blood SMALL H NEGATIVE Urine Nitrate NEGATIVE NEGATIVE Urine Bilirubin NEGATIVE NEGATIVE mg/dL Urine Urobilinogen 0.2 0.2-1.0 mg/dL Urine Leukocyte Esterase NEGATIVE NEGATIVE Fady/uL Urine RBC 6-10 H 0-1 /HPF Urine WBC 2-5 H 0-1 /HPF Urine Squamous Epithelial Cells RARE 0-2 /HPF Urine Bacteria RARE None Seen /HPF Urine Other Casts 4 None Seen /LPF Influenza Type A Antigen Negative For Type A NEGATIVE Influenza Type B Antigen Negative For Type B NEGATIVE SARS-CoV-2, RNA, NAAT NEGATIVE SARS CoV-2 NEGATIVE Test 07/11/24 14:40 Range/Units White Cell Morphology Comment See comments Prothrombin Time 10.3 9.6-11.6 SEC Prothromb Time International Ratio <= 0.93 0.85-1.15 Activated Partial Thromboplast Time 27.1 26.3-35.5 SEC Total Creatine Kinase 173 21-232 U/L Troponin I High Sensitivity 18 4-50 ng/L B-Type Natriuretic Peptide 136 H 0-100 pg/mL Current Medications Medications (Trade) Dose Ordered Sig/Lesly Route PRN Reason Start Time Stop Time Status Last Admin Dose Admin Acetaminophen (TYLenol 325MG TAB) 650 mg Q6H PRN PO FEVER 07/11/24 20:30 08/10/24 20:29 Acetaminophen (TYLenol 325MG TAB) 650 mg Q6H PRN PO MILD PAIN (1-3) 07/11/24 20:30 08/10/24 20:29 Albuterol (DUOneb) 1 udvial Q6H PRN IH SHORTNESS OF BREATH 07/11/24 21:00 08/10/24 20:59 07/12/24 11:17 1 UDVIAL Doxycycline Hyclate (Doxycycline Hyclate) 100 mg BID PO 07/11/24 21:00 07/21/24 20:59 07/12/24 08:58 100 MG Furosemide (LASix 40MG VIAL) 40 mg Q12H IV 07/12/24 08:00 07/13/24 20:01 07/12/24 08:58 40 MG Ondansetron HCl (zoFRAN 4MG INJ) 4 mg Q6H PRN IVP NAUSEA/VOMITING 07/11/24 20:30 08/10/24 20:29 Piperacillin Sod/ Tazobactam Sod (Zosyn 3.375gm+NS 50ml) 3.375 gm Q8H IV 07/12/24 05:00 07/22/24 04:59 07/12/24 14:14 3.375 GM DIAGNOSTICS / RADIOLOGY: PATIENT: TING SAENZ MR#: [id number] : 1935 SEX: F AGE: 88 LOCATION: [facility] ORDER 16 STATUS: REG ER REPORT#: [id number] SERVICE 09 REASON: RIGHT PLEURAL EFFUSIONS ORDERING PHYSICIAN: NATIVIDAD QUEZADA MD PROCEDURE: CHEST WO - CT CHEST W/O CONTRAST CT CHEST W/O CONTRAST HISTORY: RIGHT PLEURAL EFFUSIONS TECHNIQUE: CT CHEST W/O CONTRAST. Coronal and sagittal reformats were obtained. CT was performed with one or more of the following dose reduction techniques: Automated exposure control, adjustment of the mA and/or kV according to the patient's size, or use of the iterative reconstruction technique. FINDINGS: The noncontrast nature this study limits evaluation of the mediastinal structures. Patchy airspace consolidation in the right lower lobe consistent with pneumonia. Moderate right and small left pleural effusion is seen. The heart is dilated. Trace pericardial effusion is seen. There is atherosclerotic changes of the aorta and coronary arteries. There is no acute findings in the visualized upper abdomen. Degenerative changes of the spine are noted. IMPRESSION: Patchy airspace consolidation in the right lower lobe consistent with pneumonia. Moderate right and small left pleural effusion is seen. The heart is dilated. DICTATED BY: SAHRA CHAVEZ MD DATE: 07/11/241855 ASSESSMENT: Pneumonia. Bilateral pleural effusion. History of pleural effusions with multiple thoracentesis with the last one in May of 2024. Atrial fibrillation. CAD. Hypercholesterolemia. COPD. Elevated D-dimer, rule out PE. Renal failure. Anemia. PLAN: Admit to medical-surgical with telemetry under Dr. Holt's services. Obtain a V/Q scan. Oxygen support to keep O2 sat greater than 92%. Swab patient for influenza A&B.. CT of the chest was obtained. Start patient on Zosyn IV 3.375 g IV every 8 hours. Start patient on doxycycline 100 mg p.o. b.i.d.. Obtain Pulmonary consult. Nursing to list of medication for review. Avoid nephrotoxic medications. This case was reviewed and discussed with my supervising physician and the above assessment and plan was formulated and agreed upon. ATTESTATION BY PHYSICIAN I have seen and examined the patient. I reviewed the documentation, medical decision making, and treatment plan as noted by the mid-level provider above. I agree with the findings and plan of care. TAMRA HOLT MD, [facility] Jul 12, 2024 19:58
[2024-07-13] VITALS (16 sets, daily range): BP systolic 134–166; BP diastolic 67–86; PULSE 84–97; RESP 18–20; TEMP 97.5–98.2; O2SAT 95–96
[2024-07-13 05:20] LABS: HEMATOCRIT 26.6 % (36-48); MEAN CORPUSCULAR HEMOGLOBIN 25.8 pg (27.0-33.0); MEAN CORPUSCULAR VOLUME 80.6 fL (79-99); RED BLOOD CELL COUNT(AUTO) 3.3 MIL/uL (4.00-5.50); RED CELL DISTRIBUTION WIDTH 17.6 % (11.0-15.5); WHITE BLOOD COUNT (AUTO) 3.6 K/uL (4.8-10.8)
[2024-07-13 05:52] LABS: CREATININE 1.5 mg/dL (0.5-1.0); MAGNESIUM 2.4 mg/dL (1.80-2.40)
[2024-07-13 06:27] LABS: POTASSIUM 2.7 mmol/L (3.5-5.1)
[2024-07-13] MEDS ORDERED: PoTASSium chloRIDE 20MEQ/100ML 100 ML IV PRN (07:30)
[2024-07-13] MEDS: PoTASSium chl 10% ELIXIR 20MEQ 20 MEQ/15 ML UDCUP PO PRN (07:33)
--- NOTE | 2024-07-13 08:51 | NUR ---
RECEIVED CALL FROM [facility] STATING THE THE [facility]ER[facility] TO PERFORM THE VQ SCAN IS NOT WORKING AND THEY WILL UPDATE ME WITH INFO ONCE THEY KNOW WHAT THE OUTCOME IS. MADE AWARE
--- NOTE | 2024-07-13 09:29 | HMCIMG ---
CHEST 1VW REASON: Pleural effusion COMPARISON: 07/11/2024 FINDINGS: There is borderline cardiomegaly. There is mild central vascular congestion. There is perihilar infiltrate or atelectasis in the right. There are small bilateral pleural effusions which appear stable to somewhat increased. IMPRESSION: 1. Cardiomegaly with mild vascular congestion. 2. Perihilar infiltrate or atelectasis on the right. 3. Small bilateral pleural effusions.
[2024-07-13] MEDS: PoTASSium chloRIDE 20MEQ ER 20 MEQ ERTAB PO PRN (09:54)
--- NOTE | 2024-07-13 10:17 | PN ---
[facility] PROGRESS NOTE Date Patient Seen: Jul 13, 2024 Time of Visit: 10:11 Supervising Physician: Dr. Starkey Primary Care Physician: [Dr. Chin ] Outpatient Specialists: [ ] Inpatient Consults: [ BIS team: pulmo] PROBLEM LIST: Right lower lobe gzommsqsl-zeufaiah-aktcxothp-POA Moderate right and small left pleural effusion -POA Persistent dyspnea, worst on exertion-POA CONSTANCE-POA Normocytic, hypochromic anemia-POA Leukopenia, mild-POA HX of large pleural effusion with thoracentesis - A-Fib - not on anticoagulation d/t hx of bleed PLAN SUMMARY: Supplemental oxygen as needed Patient currently on room air Continue IV Lasix 40 mg b.i.d. Continue Zosyn Continue doxycycline Chest x-ray in a.m. Replace potassium via protocol No need for thoracentesis at this time INTERVAL HISTORY: Patient is extremely hard of hearing. Per ED notes: "PATIENT IS A AN 88-YEAR-OLD FEMALE COMING IN TO BE EVALUATED FOR COUGH AND SHORTNESS OF BREATH. PATIENT STATES HE HAS A HISTORY OF PLEURAL EFFUSIONS. PATIENT RECENTLY GOT A THORACENTESIS BUT STATES HE MIGHT HAVE MORE FLUID." BIS team was consulted for pulmonary consult. Chest CT revealed moderate right and small left pleural effusion with right lower lobe pneumonia. She was started on IV Zosyn and doxycycline. At the time of my evaluation, patient is resting comfortably on the bed, denies chest pain or back pain, hemodynamically stable and in no acute distress. She is currently on room air with lung sounds diminished bilaterally. She reports productive cough with clear phlegm. Negative for BLE edema. Goals of care were discussed with the patient verbalizes understanding and agreement. 07/12 - patient is seen and evaluated in the ED with no signs of acute distress. Patient is sitting up in a stretcher remains on room air. Patient does report dyspnea with exertion. Patient reports she has been receiving thoracentesis weekly for the past month. Patient is a [place] and none of her physicians are local. Patient also reported she had a history of cancer and his currently on treatment however does not recall what type of cancer she has nor the name of the medication she takes. Patient reports that pleural fluid from previous thoracentesis have been sent out for analysis and have been negative for metastatic disease. Patient reports she takes torsemide at home. Patient's CT scan of the chest did show right lower lobe pneumonia and moderate right and small left pleural effusions. Patient was started on IV Lasix overnight and diurese well. We will continue Lasix for the next24 hours. We will obtain a chest x-ray in a.m.. If her effusion persist we will arrange IR for thoracentesis in the a.m.. Vital signs are stable. Labs are within normal limits. We will continue to follow with you. 07/13 - patient is seen and evaluated at the bedside. Patient is sitting up in bed does not appear to be in any acute distress at this time. Patient can remains on room air and denies dyspnea. Patient was treated with IV Lasix overnight and diuresed very well. Today's chest x-ray shows a very minimal residual pleural effusion- too small for thoracentesis. Recommend continue IV Lasix for the next24 hours and a repeat chest x-ray in a.m.. Continue IV antibiotics for pneumonia. Vital signs are stable. Labs are within normal limits. REVIEW OF SYSTEMS: 12 point ROS reviewed with patient. Pertinent positives mentioned above. Otherwise negative. PHYSICAL EXAM: GENERAL: alert, weak, awake oriented x 3 HEENT: EOMI, Sclera non icteric, moist mucosa , extremely hard of hearing NECK: Supple, no JVD, trachea midline LUNGS: Diminished breath sounds bilaterally. No wheezes, rhonchi or rales HEART: Regular rate and rhythm. Normal S1 and S2, without murmurs ABD: Abdomen soft, nontender. Bowel sounds present EXT: No clubbing cyanosis or edema NEURO: Alert and oriented to person, follows commands Vital Signs (last 8hr) Date Time Temp Pulse Resp B/P (MAP) Pulse Ox O2 Delivery O2 Flow Rate FiO2 07/13/24 08:00 98.1 85 18 160/79 95 Room Air 07/13/24 07:46 90 20 N/A Room Air 21 07/13/24 06:41 90 20 07/13/24 03:19 97.5 97 20 137/75 94 CPAP LABS: Hematology Labs: Test 07/13/24 03:44 07/12/24 07:04 07/11/24 14:40 Range/Units White Blood Count 3.6 L 4.8-10.8 K/uL Red Blood Count 3.30 L 4.00-5.50 MIL/uL Hemoglobin 8.5 L 12.0-16.0 g/dL Hematocrit 26.6 L 36-48 % Mean Corpuscular Volume 80.6 79-99 fL Mean Corpuscular Hemoglobin 25.8 L 27.0-33.0 pg Mean Corpuscular Hemoglobin Concent 32.0 32.0-36.0 g/dL Red Cell Distribution Width 17.6 H 11.0-15.5 % Platelet Count 233 130-400 K/uL Mean Platelet Volume 10.0 7.5-10.5 fL Nucleated Red Blood Cells 0.0 0.0-0.19 % Immature Granulocyte % (Auto) 0.3 0-1 % Neutrophils (%) (Auto) 61.0 40.0-77.0 % Lymphocytes (%) (Auto) 18.9 L 21.0-51.0 % Monocytes (%) (Auto) 18.3 H 3.0-13.0 % Eosinophils (%) (Auto) 0.9 0.0-8.0 % Basophils (%) (Auto) 0.6 0.0-5.0 % Neutrophils # (Auto) 2.0 1.8-7.7 K/uL Lymphocytes # (Auto) 0.6 L 1.0-4.8 K/uL Monocytes # (Auto) 0.6 0.1-1.0 K/uL Eosinophils # (Auto) 0.03 0.00-0.70 K/uL Basophils # (Auto) 0.02 0.00-0.20 K/uL Absolute Immature Granulocyte (auto 0.01 0-1 K/uL White Cell Morphology Comment See comments Chemistry Labs: Test 07/13/24 03:44 07/11/24 14:40 Range/Units Sodium Level 144 136-145 mmol/L Potassium Level 2.7 *L 3.5-5.1 mmol/L Chloride Level 106 101-111 mmol/L Carbon Dioxide Level 31 21-32 mmol/L Blood Urea Nitrogen 37 H 7-18 mg/dL Creatinine 1.5 H 0.5-1.0 mg/dL Glomerular Filtration Rate Calc 33 >90 mL/min Random Glucose 94 70-105 mg/dL Total Calcium 8.5 8.5-10.1 mg/dL Magnesium Level 2.40 1.80-2.40 mg/dL Procalcitonin < 0.05 L 0.05-0.5 ng/mL Total Creatine Kinase 173 21-232 U/L Troponin I High Sensitivity 18 4-50 ng/L B-Type Natriuretic Peptide 136 H 0-100 pg/mL Coagulation Labs: Test 07/12/24 01:30 07/11/24 14:40 Range/Units D-Dimer Quantitative (PE/DVT) 1304 *H 0-500 ng/mL Prothrombin Time 10.3 9.6-11.6 SEC Prothromb Time International Ratio <= 0.93 0.85-1.15 Activated Partial Thromboplast Time 27.1 26.3-35.5 SEC DIAGNOSTICS / RADIOLOGY RESULTS: PATIENT: TING SAENZ MR#: [id number] : 1935 SEX: F AGE: 88 LOCATION: [facility] ORDER 230 STATUS: ADM IN REPORT#: [id number] SERVICE 0600 REASON: Pleural effusion ORDERING PHYSICIAN: CONOR GALINDO NP PROCEDURE: CXR1VW - CHEST 1VW CHEST 1VW REASON: Pleural effusion COMPARISON: 07/11/2024 FINDINGS: There is borderline cardiomegaly. There is mild central vascular congestion. There is perihilar infiltrate or atelectasis in the right. There are small bilateral pleural effusions which appear stable to somewhat increased. IMPRESSION: 1. Cardiomegaly with mild vascular congestion. 2. Perihilar infiltrate or atelectasis on the right. 3. Small bilateral pleural effusions. DICTATED BY: ARDEN FONG MD DATE: 07/13/24924 ELECTRONICALLY SIGNED BY: ARDEN FONG MD DATE: 07/13/24928 PLAN NEURO: Minimize central acting medications as possible. Maintain fall precautions, adequate lighting during the day PULMONARY: Supplemental 02 as needed. Maintain aspiration precautions at all times CARDIOVASCULAR: Follow hemodynamics. Vital signs per facility protocol GI & NUTRITION: Continue with nutritional support. Continue stool softeners and laxatives as needed. KIDNEYS & ELECTROLYTES: Strict monitoring of intake, output and overall fluid balance. Avoid nephrotoxic medications to the extent possible. Medications to be dosed according to renal function. Monitor electrolytes and replace as needed ENDOCRINE: Maintain blood glucose between 100-180 at all times. Hypoglycemia protocol in place INFECTIOUS DISEASE: Trend temperature, WBC and procalcitonin level Follow cultures, deescalate antibiotics as soon as possible. Panculture if new onset fever ONCOLOGY/HEMATOLOGY/COAGULATION: Monitor for s/s of bleeding Monitor hemoglobin, coagulation studies as needed SKIN: Pressure ulcer prevention per facility protocol Specialty mattress ORTHO/REHAB: Continue PT/OT Prophylaxis: Continue GI and DVT prophylaxis Code Status: Full Resuscitation Disposition: As per attending Other: Total patient care time: 35 minutes ATTESTATION BY PHYSICIAN I reviewed the documentation, medical decision making, and treatment plan as noted by the mid-level provider above. I agree with the findings and plan of care. Eliseo Starkey MD, ECTOR N NP Jul 13, 2024 10:16
[2024-07-13] MEDS: guaiFENesin-DM 200/20MG 10ML PO PRN (11:16)
[2024-07-13] MEDS: acetaMINOPHEN 325 MG TAB PO PRN (12:41)
--- NOTE | 2024-07-13 16:58 | PN ---
INFECTIOUS DISEASE PROGRESS NOTE Date of Service: Jul 13, 2024 SUBJECTIVE: Patient was seen and examined at bedside in room 402. Patient is awake, alert and oriented x3. Patient is sitting up in bed in high Grace's position. Patient is hard of hearing, uses a hearing aid. Patient continues with productive cough. We will obtain sputum culture and start patient on Tessalon Perles. No fever, temperature is 98.1. Potassium level of 2.7 being replaced. Per report the V/Q scan has not been done due to malfunctioning equipment. We will continue Zosyn and doxycycline. Will continue to monitor patient's care. PHYSICAL EXAM EYES: Anicteric. Pupils equal and reactive. HENT: No oral thrush seen, moist Oral mucosa. Hard of hearing, uses hearing aids. NECK: Supple, no JVD or thyromegaly. LUNGS: Good air entry. Crackles bilaterally. Productive cough. CARDIOVASCULAR: S1, S2 regular. No murmur heard. ABDOMEN: Soft, non tender, bowel sounds present, no organomegaly. CENTRAL NERVOUS SYSTEM: Awake, alert, oriented x 3. SKIN: No rashes, no swelling. LYMPHATICS: No peripheral lymphadenopathy. MUSCULOSKELETAL: No joint swelling, erythema or tenderness. EXTREMITIES: No cyanosis or clubbing. BACK: No deformity, no pressure ulcer. GENITOURINARY: No dysuria or hematuria. Vital Sign (Last 12 Hours) 07/13/24 07/13/24 07/13/24 07/13/24 06:41 07:46 08:00 08:00 Temp 98.1 Pulse 90 90 85 Resp 20 20 18 B/P (MAP) 160/79 Pulse Ox 95 95 O2 Delivery N/A Room Air Room Air* Room Air O2 Flow Rate 0 FiO2 21 21 07/13/24 07/13/24 10:15 12:00 Temp 98.1 Pulse 92 96 Resp 20 20 B/P (MAP) 166/74 Pulse Ox 95 O2 Delivery Room Air LABS: Laboratory: Test 07/13/24 03:44 07/12/24 07:04 07/12/24 01:30 Range/Units White Blood Count 3.6 L 4.8-10.8 K/uL Red Blood Count 3.30 L 4.00-5.50 MIL/uL Hemoglobin 8.5 L 12.0-16.0 g/dL Hematocrit 26.6 L 36-48 % Mean Corpuscular Volume 80.6 79-99 fL Mean Corpuscular Hemoglobin 25.8 L 27.0-33.0 pg Mean Corpuscular Hemoglobin Concent 32.0 32.0-36.0 g/dL Red Cell Distribution Width 17.6 H 11.0-15.5 % Platelet Count 233 130-400 K/uL Mean Platelet Volume 10.0 7.5-10.5 fL Nucleated Red Blood Cells 0.0 0.0-0.19 % Sodium Level 144 136-145 mmol/L Potassium Level 2.7 *L 3.5-5.1 mmol/L Chloride Level 106 101-111 mmol/L Carbon Dioxide Level 31 21-32 mmol/L Blood Urea Nitrogen 37 H 7-18 mg/dL Creatinine 1.5 H 0.5-1.0 mg/dL Glomerular Filtration Rate Calc 33 >90 mL/min Random Glucose 94 70-105 mg/dL Total Calcium 8.5 8.5-10.1 mg/dL Magnesium Level 2.40 1.80-2.40 mg/dL Procalcitonin < 0.05 L 0.05-0.5 ng/mL Immature Granulocyte % (Auto) 0.3 0-1 % Neutrophils (%) (Auto) 61.0 40.0-77.0 % Lymphocytes (%) (Auto) 18.9 L 21.0-51.0 % Monocytes (%) (Auto) 18.3 H 3.0-13.0 % Eosinophils (%) (Auto) 0.9 0.0-8.0 % Basophils (%) (Auto) 0.6 0.0-5.0 % Neutrophils # (Auto) 2.0 1.8-7.7 K/uL Lymphocytes # (Auto) 0.6 L 1.0-4.8 K/uL Monocytes # (Auto) 0.6 0.1-1.0 K/uL Eosinophils # (Auto) 0.03 0.00-0.70 K/uL Basophils # (Auto) 0.02 0.00-0.20 K/uL Absolute Immature Granulocyte (auto 0.01 0-1 K/uL D-Dimer Quantitative (PE/DVT) 1304 *H 0-500 ng/mL Mycoplasma pneumoniae IgM Antibody NEGATIVE NEGATIVE ASSESSMENT: Pneumonia. Bilateral pleural effusion. History of pleural effusions with multiple thoracentesis with the last one in May of 2024. Atrial fibrillation. CAD. Hypercholesterolemia. COPD. Elevated D-dimer, rule out PE. Renal failure. Anemia. Hypokalemia. Debility. PLAN: Continue Zosyn IV. Continue doxycycline p.o. Continue bronchodilators. Obtain sputum cultures. Start Tessalon Perles 200 mg t.i.d. Continue bronchodilators. Pending a V/Q scan. Oxygen support to keep O2 sat greater than 92%. Blaster Helper consulted and following. Hypokalemia protocol has been started. Home medication reviewed and reconciled. Physical therapy to evaluate and treat. Avoid nephrotoxic medications. This case was reviewed and discussed with my supervising physician and the above assessment and plan was formulated and agreed upon. ATTESTATION BY PHYSICIAN I have seen and examined the patient. I reviewed the documentation, medical decision making, and treatment plan as noted by the mid-level provider above. I agree with the findings and plan of care. TAMRA HOLT MD, MIRTA L DRIVER STARTING GATE Jul 13, 2024 16:58
[2024-07-13] MEDS ORDERED: CALC-190 PO (17:50)
[2024-07-13] MEDS ORDERED: POTA-192 PO ×2 (17:50)
[2024-07-13] MEDS ORDERED: ATOR40TA69 PO (17:50)
[2024-07-13] MEDS ORDERED: LEVO25CA4 PO (17:50)
[2024-07-13] MEDS ORDERED: EZET10TA48 PO (17:50)
[2024-07-13] MEDS ORDERED: CYAN100084 PO (17:50)
[2024-07-13] MEDS ORDERED: EVER10TA PO (17:50)
[2024-07-13] MEDS ORDERED: PANT40TA PO (17:50)
[2024-07-13] MEDS: BENZONATATE 100 MG CAPSULE PO SCH (21:32)
[2024-07-13] MEDS: SODIUM CHLORIDE 3% FOR INHALATION 4 ML/AMP VIAL.NEB IH ONE (23:46)
[2024-07-14] VITALS (12 sets, daily range): BP systolic 126–157; BP diastolic 65–82; PULSE 82–110; RESP 17–20; TEMP 97.5–98.3; O2SAT 95–98
[2024-07-14 05:34] LABS: BASOPHILS # (AUTO) 0.02 K/uL (0.00-0.20); BASOPHILS % (AUTO) 0.4 % (0.0-5.0); EOSINOPHILS # (AUTO) 0.13 K/uL (0.00-0.70); EOSINOPHILS % (AUTO) 2.3 % (0.0-8.0); HEMATOCRIT 26.7 % (36-48); IMMATURE GRANULOCYTE ABSOLUTE 0.02 K/uL (0-1); LYMPHOCYTES # (AUTO) 0.8 K/uL (1.0-4.8); LYMPHOCYTES % (AUTO) 14.3 % (21.0-51.0); MEAN CORPUSCULAR HEMOGLOBIN 25.1 pg (27.0-33.0); MEAN CORPUSCULAR HGB CONC 32.2 g/dL (32.0-36.0); MEAN CORPUSCULAR VOLUME 77.8 fL (79-99); MONOCYTES # (AUTO) 0.6 K/uL (0.1-1.0); MONOCYTES % (AUTO) 11.3 % (3.0-13.0); NEUTROPHILS % (AUTO) 71.3 % (40.0-77.0); PLATELET COUNT (AUTO) 236 K/uL (130-400); RED BLOOD CELL COUNT(AUTO) 3.43 MIL/uL (4.00-5.50); RED CELL DISTRIBUTION WIDTH 17.6 % (11.0-15.5); WHITE BLOOD COUNT (AUTO) 5.7 K/uL (4.8-10.8)
[2024-07-14 05:56] LABS: ALBUMIN 2.6 g/dL (3.5-5.0); BILIRUBIN,TOTAL 0.4 mg/dL (0.2-1.0); CREATININE 1.6 mg/dL (0.5-1.0); MAGNESIUM 2.3 mg/dL (1.80-2.40); THYROID STIMULATING HORMONE 4.87 uIU/mL (0.36-3.74); TOTAL PROTEIN, SERUM 5.8 g/dL (6.0-8.3)
[2024-07-14] MEDS: levoTHYROxine 25 MCG TABLET PO SCH (06:00)
[2024-07-14 06:14] LABS: POTASSIUM 2.9 mmol/L (3.5-5.1)
[2024-07-14] MEDS: atorVAStatin 40 MG TABLET PO SCH (07:30)
[2024-07-14] MEDS ORDERED: atorVAStatin 40 MG TABLET PO SCH (09:00)
[2024-07-14] MEDS ORDERED: CA 600MG+VIT D 400 UNIT TAB 1 TAB TABLET PO SCH (09:00)
[2024-07-14] MEDS: FERROUS SULFATE 325 MG TABLET.DR PO SCH (09:04)
[2024-07-14] MEDS: PANTOPrazole 40 MG TAB DR PO SCH (09:04)
[2024-07-14] MEDS: CYANOCOBALAMIN (VITAMIN B-12) 1,000 MCG TABLET PO SCH (09:04)
[2024-07-14] MEDS: EZETIMIBE 10 MG TAB PO SCH (09:04)
[2024-07-14] MEDS: CA 600MG+VIT D 400 UNIT TAB 1 TAB TABLET PO SCH (09:05)
--- NOTE | 2024-07-14 11:10 | HMCIMG ---
CHEST 1VW REASON: effusion COMPARISON: 07/13/2024 FINDINGS: There is moderate cardiomegaly, unchanged. There is no pulmonary vascular congestion. There is a moderate right pleural effusion. There is partial atelectasis of the right lower lobe. There is a small left pleural effusion. There is no vascular congestion. There is no pneumothorax or other complication. IMPRESSION: 1. Moderate right pleural effusion with partial atelectasis of the right lower lobe. 2. Small left pleural effusion. 3. Stable cardiomegaly.
--- NOTE | 2024-07-14 12:10 | PN ---
INFECTIOUS DISEASE PROGRESS NOTE Date of Service: Jul 14, 2024 SUBJECTIVE: Patient was seen and examined at bedside in room 402. Patient is awake, alert and oriented x3. Patient is sitting up on the bedside chair. No fever, temperature is 98.2 and a WBC of 5.7. Continues with productive cough. The sputum culture has been collected. We will follow up on the results. Patient is saturating 97% on room air this morning. Continue Zosyn and doxycycline. No reports of nausea or vomiting. Will continue to monitor patient's care. PHYSICAL EXAM EYES: Anicteric. Pupils equal and reactive. HENT: No oral thrush seen, moist Oral mucosa. Hard of hearing, uses hearing aids. NECK: Supple, no JVD or thyromegaly. LUNGS: Good air entry. Crackles bilaterally. Productive cough. CARDIOVASCULAR: S1, S2 regular. No murmur heard. ABDOMEN: Soft, non tender, bowel sounds present, no organomegaly. CENTRAL NERVOUS SYSTEM: Awake, alert, oriented x 3. SKIN: No rashes, no swelling. LYMPHATICS: No peripheral lymphadenopathy. MUSCULOSKELETAL: No joint swelling, erythema or tenderness. EXTREMITIES: No cyanosis or clubbing. BACK: No deformity, no pressure ulcer. GENITOURINARY: No dysuria or hematuria. Vital Sign (Last 12 Hours) 07/14/24 07/14/24 07/14/24 07/14/24 03:53 06:34 08:00 08:00 Temp 98.1 98.2 Pulse 85 96 110 Resp 17 18 18 B/P (MAP) 127/70 126/71 Pulse Ox 96 97 97 O2 Delivery CPAP Room Air* Room Air O2 Flow Rate 0 FiO2 21 07/14/24 08:15 Pulse 96 Resp 18 O2 Delivery N/A Room Air FiO2 21 Intake & Output (last 24hrs) 07/13/24 07/13/24 07/14/24 15:00 23:00 07:00 Intake Total 50.0 ml 500 ml Output Total 450 ml 900 ml Balance 50.0 ml 50 ml -900 ml LABS: Laboratory: Test 07/14/24 05:01 07/13/24 03:44 Range/Units White Blood Count 5.7 4.8-10.8 K/uL Red Blood Count 3.43 L 4.00-5.50 MIL/uL Hemoglobin 8.6 L 12.0-16.0 g/dL Hematocrit 26.7 L 36-48 % Mean Corpuscular Volume 77.8 L 79-99 fL Mean Corpuscular Hemoglobin 25.1 L 27.0-33.0 pg Mean Corpuscular Hemoglobin Concent 32.2 32.0-36.0 g/dL Red Cell Distribution Width 17.6 H 11.0-15.5 % Platelet Count 236 130-400 K/uL Mean Platelet Volume 9.6 7.5-10.5 fL Immature Granulocyte % (Auto) 0.4 0-1 % Neutrophils (%) (Auto) 71.3 40.0-77.0 % Lymphocytes (%) (Auto) 14.3 L 21.0-51.0 % Monocytes (%) (Auto) 11.3 3.0-13.0 % Eosinophils (%) (Auto) 2.3 0.0-8.0 % Basophils (%) (Auto) 0.4 0.0-5.0 % Neutrophils # (Auto) 4.0 1.8-7.7 K/uL Lymphocytes # (Auto) 0.8 L 1.0-4.8 K/uL Monocytes # (Auto) 0.6 0.1-1.0 K/uL Eosinophils # (Auto) 0.13 0.00-0.70 K/uL Basophils # (Auto) 0.02 0.00-0.20 K/uL Absolute Immature Granulocyte (auto 0.02 0-1 K/uL Nucleated Red Blood Cells 0.0 0.0-0.19 % Sodium Level 144 136-145 mmol/L Potassium Level 2.9 *L 3.5-5.1 mmol/L Chloride Level 105 101-111 mmol/L Carbon Dioxide Level 36 H 21-32 mmol/L Blood Urea Nitrogen 36 H 7-18 mg/dL Creatinine 1.6 H 0.5-1.0 mg/dL Glomerular Filtration Rate Calc 31 >90 mL/min Random Glucose 87 70-105 mg/dL Total Calcium 8.6 8.5-10.1 mg/dL Magnesium Level 2.30 1.80-2.40 mg/dL Total Bilirubin 0.4 0.2-1.0 mg/dL Aspartate Amino Transf (AST/SGOT) 27 10-37 U/L Alanine Aminotransferase (ALT/SGPT) 22 12-78 U/L Alkaline Phosphatase 102 50-136 U/L Total Protein 5.8 L 6.0-8.3 g/dL Albumin 2.6 L 3.5-5.0 g/dL Triglycerides Level 56 30-200 mg/dL Cholesterol Level 131 <200 mg/dL LDL Cholesterol 66 0-99 mg/dL HDL Cholesterol 57 35-85 mg/dL Thyroid Stimulating Hormone (TSH) 4.87 H 0.36-3.74 uIU/mL Procalcitonin < 0.05 L 0.05-0.5 ng/mL ASSESSMENT: Pneumonia. Bilateral pleural effusion. History of pleural effusions with multiple thoracentesis with the last one in May of 2024. Atrial fibrillation. CAD. Hypercholesterolemia. COPD. Elevated D-dimer, rule out PE. Renal failure. Anemia. Hypokalemia. Debility. Anemia. PLAN: Continue Zosyn IV. Continue doxycycline p.o. Continue bronchodilators. Obtain sputum cultures. Start Tessalon Perles 200 mg t.i.d. Continue bronchodilators. Pending a V/Q scan. Oxygen support to keep O2 sat greater than 92%. Shaker Out consulted and following. Continue Hypokalemia protocol. Pending Physical therapy evaluation. Avoid nephrotoxic medications. Continue iron supplements. This case was reviewed and discussed with my supervising physician and the above assessment and plan was formulated and agreed upon. ATTESTATION BY PHYSICIAN I have seen and examined the patient. I reviewed the documentation, medical decision making, and treatment plan as noted by the mid-level provider above. I agree with the findings and plan of care. TAMRA HOLT MD, MIRTA L BUTTONHOLE MACHINE OPERATOR Jul 14, 2024 12:10
--- NOTE | 2024-07-14 13:24 | PN ---
[facility] PROGRESS NOTE Date Patient Seen: Jul 14, 2024 Time of Visit: 13:24 Supervising Physician: Dr. Eliseo Starkey Primary Care Physician: [Dr. Chin ] Outpatient Specialists: [ ] Inpatient Consults: [ BIS team: pulmo] PROBLEM LIST: Right lower lobe [id number]-eyfcenjt-[id number]-POA Moderate right and small left pleural effusion -POA Persistent dyspnea, worst on exertion-POA CONSTANCE-POA Normocytic, hypochromic anemia-POA Leukopenia, mild-POA HX of large pleural effusion with thoracentesis - A-Fib - not on anticoagulation d/t hx of bleed PLAN SUMMARY: Supplemental oxygen as needed Start Mucomyst nebulized treatment Patient currently on room air Continue IV Lasix 40 mg b.i.d. Continue Zosyn Continue doxycycline Chest x-ray in a.m. Replace potassium via protocol No need for thoracentesis at this time INTERVAL HISTORY: Patient evaluated at bedside, she is on room air at this time, white count is 5.7 in her pneumonia appears to be clearing up well. Patient does however continue with upper airway congestion, severe phlegm, unable to expectorate. Patient is on guaifenesin at this time, we will add Mucomyst nebulizer treatment along with her albuterol q.4 hours at this time. We will re-evaluate tomorrow and potentially back to patient off of Mucomyst if she is able to expectorate e nough overnight. Patient was in agreement with the current treatment plan. REVIEW OF SYSTEMS: 12 point ROS reviewed with patient. Pertinent positives mentioned above. Otherwise negative. PHYSICAL EXAM: GENERAL: alert, weak, awake oriented x 3 HEENT: EOMI, Sclera non icteric, moist mucosa , extremely hard of hearing NECK: Supple, no JVD, trachea midline LUNGS: Diminished breath sounds bilaterally. No wheezes, rhonchi or rales HEART: Regular rate and rhythm. Normal S1 and S2, without murmurs ABD: Abdomen soft, nontender. Bowel sounds present EXT: No clubbing cyanosis or edema NEURO: Alert and oriented to person, follows commands Vital Signs (last 8hr) Date Time Temp Pulse Resp B/P (MAP) Pulse Ox O2 Delivery O2 Flow Rate FiO2 07/14/24 11:59 98.2 96 20 144/82 99 Room Air 07/14/24 11:00 82 18 07/14/24 08:15 96 18 N/A Room Air 21 07/14/24 08:00 98.2 110 18 126/71 97 Room Air 07/14/24 08:00 97 Room Air* 0 21 07/14/24 06:34 96 18 LABS: Hematology Labs: Test 07/14/24 05:01 Range/Units White Blood Count 5.7 4.8-10.8 K/uL Red Blood Count 3.43 L 4.00-5.50 MIL/uL Hemoglobin 8.6 L 12.0-16.0 g/dL Hematocrit 26.7 L 36-48 % Mean Corpuscular Volume 77.8 L 79-99 fL Mean Corpuscular Hemoglobin 25.1 L 27.0-33.0 pg Mean Corpuscular Hemoglobin Concent 32.2 32.0-36.0 g/dL Red Cell Distribution Width 17.6 H 11.0-15.5 % Platelet Count 236 130-400 K/uL Mean Platelet Volume 9.6 7.5-10.5 fL Immature Granulocyte % (Auto) 0.4 0-1 % Neutrophils (%) (Auto) 71.3 40.0-77.0 % Lymphocytes (%) (Auto) 14.3 L 21.0-51.0 % Monocytes (%) (Auto) 11.3 3.0-13.0 % Eosinophils (%) (Auto) 2.3 0.0-8.0 % Basophils (%) (Auto) 0.4 0.0-5.0 % Neutrophils # (Auto) 4.0 1.8-7.7 K/uL Lymphocytes # (Auto) 0.8 L 1.0-4.8 K/uL Monocytes # (Auto) 0.6 0.1-1.0 K/uL Eosinophils # (Auto) 0.13 0.00-0.70 K/uL Basophils # (Auto) 0.02 0.00-0.20 K/uL Absolute Immature Granulocyte (auto 0.02 0-1 K/uL Nucleated Red Blood Cells 0.0 0.0-0.19 % Chemistry Labs: Test 07/14/24 05:01 07/13/24 03:44 Range/Units Sodium Level 144 136-145 mmol/L Potassium Level 2.9 *L 3.5-5.1 mmol/L Chloride Level 105 101-111 mmol/L Carbon Dioxide Level 36 H 21-32 mmol/L Blood Urea Nitrogen 36 H 7-18 mg/dL Creatinine 1.6 H 0.5-1.0 mg/dL Glomerular Filtration Rate Calc 31 >90 mL/min Random Glucose 87 70-105 mg/dL Total Calcium 8.6 8.5-10.1 mg/dL Magnesium Level 2.30 1.80-2.40 mg/dL Total Bilirubin 0.4 0.2-1.0 mg/dL Aspartate Amino Transf (AST/SGOT) 27 10-37 U/L Alanine Aminotransferase (ALT/SGPT) 22 12-78 U/L Alkaline Phosphatase 102 50-136 U/L Total Protein 5.8 L 6.0-8.3 g/dL Albumin 2.6 L 3.5-5.0 g/dL Triglycerides Level 56 30-200 mg/dL Cholesterol Level 131 <200 mg/dL LDL Cholesterol 66 0-99 mg/dL HDL Cholesterol 57 35-85 mg/dL Thyroid Stimulating Hormone (TSH) 4.87 H 0.36-3.74 uIU/mL Procalcitonin < 0.05 L 0.05-0.5 ng/mL DIAGNOSTICS / RADIOLOGY RESULTS: [ ] PLAN NEURO: Minimize central acting medications as possible. Maintain fall precautions, adequate lighting during the day PULMONARY: Supplemental 02 as needed. Maintain aspiration precautions at all times CARDIOVASCULAR: Follow hemodynamics. Vital signs per facility protocol GI & NUTRITION: Continue with nutritional support. Continue stool softeners and laxatives as needed. KIDNEYS & ELECTROLYTES: Strict monitoring of intake, output and overall fluid balance. Avoid nephrotoxic medications to the extent possible. Medications to be dosed according to renal function. Monitor electrolytes and replace as needed ENDOCRINE: Maintain blood glucose between 100-180 at all times. Hypoglycemia protocol in place INFECTIOUS DISEASE: Trend temperature, WBC and procalcitonin level Follow cultures, deescalate antibiotics as soon as possible. Panculture if new onset fever ONCOLOGY/HEMATOLOGY/COAGULATION: Monitor for s/s of bleeding Monitor hemoglobin, coagulation studies as needed SKIN: Pressure ulcer prevention per facility protocol Specialty mattress ORTHO/REHAB: Continue PT/OT Prophylaxis: Continue GI and DVT prophylaxis Code Status: Full Resuscitation Disposition: As per attending Other: Total patient care time: 35 minutes DAVID WELLER Jul 14, 2024 13:24
[2024-07-14] MEDS: guaiFENesin-DM 200/20MG 10ML PO SCH (13:43)
--- NOTE | 2024-07-14 15:17 | NUR ---
Notes: Met with pt. Pt reported good appetite, 75% PO intake, NKFA, Last BM 07/13/2024, denied recent weight loss, and denies difficulty chewing and/or swallowing. Recommendations: Continue Heart Healthy Diet + prostat jello QD w / lunch tray Monitor wts as able Encourage PO as able Order vitamin B12, Vitamin D, and iron lab to rule out deficiencies Continue b-complex QD Monitor BMs Monitor wts Reweigh as able Monitor goals of care RD to follow + available for consult per protocol Dietetic Student, Sabi Schmid Addendum: 07/14/24 at [address] Amended: Links added.
[2024-07-14] MEDS: acetylCYSTeine10% 4ML VIAL IH SCH (18:00)
--- NOTE | 2024-07-14 20:11 | HMCIMG ---
NUCLEAR MEDICINE VENTILATION/PERFUSION SCAN INDICATION: Elevated d-dimer COMPARISON: Most Recent Chest Radiograph from 07/14/2024. RADIOPHARMACEUTICALS: 5.0 mCi of xenon-133 gas and 5.0 mCi of intravenous Tc 99m MAA FINDINGS: No abnormal matched or mismatched ventilation or perfusion defect noted. Symmetric bilateral distribution of radiopharmaceutical on both the perfusion and ventilation images identified. IMPRESSION: Negative for pulmonary embolism.
[2024-07-15] VITALS (17 sets, daily range): BP systolic 136–157; BP diastolic 62–82; PULSE 84–110; RESP 16–21; TEMP 97.5–98.7; O2SAT 94–97
[2024-07-15 10:23] LABS: BASOPHILS # (AUTO) 0.02 K/uL (0.00-0.20); BASOPHILS % (AUTO) 0.3 % (0.0-5.0); EOSINOPHILS # (AUTO) 0.06 K/uL (0.00-0.70); HEMATOCRIT 27.3 % (36-48); IMMATURE GRANULOCYTE ABSOLUTE 0.04 K/uL (0-1); LYMPHOCYTES # (AUTO) 0.6 K/uL (1.0-4.8); LYMPHOCYTES % (AUTO) 8.8 % (21.0-51.0); MEAN CORPUSCULAR HEMOGLOBIN 25.4 pg (27.0-33.0); MEAN CORPUSCULAR HGB CONC 31.5 g/dL (32.0-36.0); MEAN CORPUSCULAR VOLUME 80.5 fL (79-99); MONOCYTES # (AUTO) 0.4 K/uL (0.1-1.0); MONOCYTES % (AUTO) 6.7 % (3.0-13.0); NEUTROPHILS # (AUTO) 5.2 K/uL (1.8-7.7); NEUTROPHILS % (AUTO) 82.6 % (40.0-77.0); PLATELET COUNT (AUTO) 268 K/uL (130-400); RED BLOOD CELL COUNT(AUTO) 3.39 MIL/uL (4.00-5.50); RED CELL DISTRIBUTION WIDTH 17.7 % (11.0-15.5); WHITE BLOOD COUNT (AUTO) 6.2 K/uL (4.8-10.8)
[2024-07-15 10:38] LABS: ALBUMIN 2.6 g/dL (3.5-5.0); BILIRUBIN,TOTAL 0.5 mg/dL (0.2-1.0); CREATININE 1.4 mg/dL (0.5-1.0); MAGNESIUM 2.3 mg/dL (1.80-2.40); POTASSIUM 3.7 mmol/L (3.5-5.1); TOTAL PROTEIN, SERUM 5.7 g/dL (6.0-8.3)
--- NOTE | 2024-07-15 13:09 | PN ---
[facility] PROGRESS NOTE Date Patient Seen: Jul 15, 2024 Time of Visit: 13:08 Supervising Physician: Dr. Tala Vann Primary Care Physician: [Dr. Chin ] Outpatient Specialists: [ ] Inpatient Consults: [ BIS team: pulmo] PROBLEM LIST: Right lower lobe ldhhctood-cjkffddt-awurwccoz-POA Moderate right and small left pleural effusion -POA Persistent dyspnea, worst on exertion-POA CONSTANCE-POA Normocytic, hypochromic anemia-POA Leukopenia, mild-POA HX of large pleural effusion with thoracentesis - A-Fib - not on anticoagulation d/t hx of bleed PLAN SUMMARY: Supplemental oxygen as needed Start Mucomyst nebulized treatment Patient currently on room air Continue IV Lasix 40 mg b.i.d. Continue Zosyn Continue doxycycline Chest x-ray in a.m. Replace potassium via protocol No need for thoracentesis at this time INTERVAL HISTORY: Patient was evaluated at bedside today, currently having lunch and tolerating her diet well. Patient continues with upper respiratory congestion, currently on Mucomyst and DuoNebs alternating q.4 hours. Patient continues on guaifenesin as well. Patient continues to endorse feeling extremely weak, fatigued, lower extremity soreness and difficulty walking with physical therapy. Advised patient that there are options available for disposition regarding physical therapy, she states that she would likely just like to return home. I advised her to speak with her primary team about this should she have concerns however at this time for disposition is as she wants it. We recommend patient to continue at least one more day on Mucomyst at this time as she is showing improvement but continues with congestion. Disposition per primary REVIEW OF SYSTEMS: 12 point ROS reviewed with patient. Pertinent positives mentioned above. Otherwise negative. PHYSICAL EXAM: GENERAL: alert, weak, awake oriented x 3 HEENT: EOMI, Sclera non icteric, moist mucosa , extremely hard of hearing NECK: Supple, no JVD, trachea midline LUNGS: Diminished breath sounds bilaterally. No wheezes, rhonchi or rales HEART: Regular rate and rhythm. Normal S1 and S2, without murmurs ABD: Abdomen soft, nontender. Bowel sounds present EXT: No clubbing cyanosis or edema NEURO: Alert and oriented to person, follows commands Vital Signs (last 8hr) Date Time Temp Pulse Resp B/P (MAP) Pulse Ox O2 Delivery O2 Flow Rate FiO2 07/15/24 11:06 97.9 108 18 136/64 95 Nasal Cannula 2.0 07/15/24 09:44 100 18 07/15/24 08:01 97.9 110 19 137/81 94 CPAP 07/15/24 08:00 94 Room Air* 0 21 07/15/24 06:23 92 18 07/15/24 06:20 91 18 N/A Room Air 21 07/15/24 06:20 92 18 07/15/24 06:19 91 18 LABS: Hematology Labs: Test 07/15/24 10:03 Range/Units White Blood Count 6.2 4.8-10.8 K/uL Red Blood Count 3.39 L 4.00-5.50 MIL/uL Hemoglobin 8.6 L 12.0-16.0 g/dL Hematocrit 27.3 L 36-48 % Mean Corpuscular Volume 80.5 79-99 fL Mean Corpuscular Hemoglobin 25.4 L 27.0-33.0 pg Mean Corpuscular Hemoglobin Concent 31.5 L 32.0-36.0 g/dL Red Cell Distribution Width 17.7 H 11.0-15.5 % Platelet Count 268 130-400 K/uL Mean Platelet Volume 10.2 7.5-10.5 fL Immature Granulocyte % (Auto) 0.6 0-1 % Neutrophils (%) (Auto) 82.6 H 40.0-77.0 % Lymphocytes (%) (Auto) 8.8 L 21.0-51.0 % Monocytes (%) (Auto) 6.7 3.0-13.0 % Eosinophils (%) (Auto) 1.0 0.0-8.0 % Basophils (%) (Auto) 0.3 0.0-5.0 % Neutrophils # (Auto) 5.2 1.8-7.7 K/uL Lymphocytes # (Auto) 0.6 L 1.0-4.8 K/uL Monocytes # (Auto) 0.4 0.1-1.0 K/uL Eosinophils # (Auto) 0.06 0.00-0.70 K/uL Basophils # (Auto) 0.02 0.00-0.20 K/uL Absolute Immature Granulocyte (auto 0.04 0-1 K/uL Nucleated Red Blood Cells 0.0 0.0-0.19 % Chemistry Labs: Test 07/15/24 10:03 07/14/24 16:08 07/14/24 05:01 Range/Units Sodium Level 144 136-145 mmol/L Potassium Level 3.7 3.5-5.1 mmol/L Chloride Level 107 101-111 mmol/L Carbon Dioxide Level 34 H 21-32 mmol/L Blood Urea Nitrogen 33 H 7-18 mg/dL Creatinine 1.4 H 0.5-1.0 mg/dL Glomerular Filtration Rate Calc 36 >90 mL/min Random Glucose 106 H 70-105 mg/dL Total Calcium 8.7 8.5-10.1 mg/dL Magnesium Level 2.30 1.80-2.40 mg/dL Total Bilirubin 0.5 0.2-1.0 mg/dL Aspartate Amino Transf (AST/SGOT) 27 10-37 U/L Alanine Aminotransferase (ALT/SGPT) 24 12-78 U/L Alkaline Phosphatase 100 50-136 U/L Total Protein 5.7 L 6.0-8.3 g/dL Albumin 2.6 L 3.5-5.0 g/dL Iron Level 39 L 50-170 mcg/dL Vitamin B12 Level 1569 H 193-986 pg/mL Triglycerides Level 56 30-200 mg/dL Cholesterol Level 131 <200 mg/dL LDL Cholesterol 66 0-99 mg/dL HDL Cholesterol 57 35-85 mg/dL Thyroid Stimulating Hormone (TSH) 4.87 H 0.36-3.74 uIU/mL DIAGNOSTICS / RADIOLOGY RESULTS: [ ] PLAN NEURO: Minimize central acting medications as possible. Maintain fall precautions, adequate lighting during the day PULMONARY: Supplemental 02 as needed. Maintain aspiration precautions at all times CARDIOVASCULAR: Follow hemodynamics. Vital signs per facility protocol GI & NUTRITION: Continue with nutritional support. Continue stool softeners and laxatives as needed. KIDNEYS & ELECTROLYTES: Strict monitoring of intake, output and overall fluid balance. Avoid nephrotoxic medications to the extent possible. Medications to be dosed according to renal function. Monitor electrolytes and replace as needed ENDOCRINE: Maintain blood glucose between 100-180 at all times. Hypoglycemia protocol in place INFECTIOUS DISEASE: Trend temperature, WBC and procalcitonin level Follow cultures, deescalate antibiotics as soon as possible. Panculture if new onset fever ONCOLOGY/HEMATOLOGY/COAGULATION: Monitor for s/s of bleeding Monitor hemoglobin, coagulation studies as needed SKIN: Pressure ulcer prevention per facility protocol Specialty mattress ORTHO/REHAB: Continue PT/OT Prophylaxis: Continue GI and DVT prophylaxis Code Status: Full Resuscitation Disposition: As per attending Other: Total patient care time: 35 minutes DAVID WELLER Jul 15, 2024 13:09
--- NOTE | 2024-07-15 16:33 | PN ---
INFECTIOUS DISEASE PROGRESS NOTE Date of Service: Jul 15, 2024 SUBJECTIVE: Patient was seen and examined at bedside in room 402. Patient is awake, alert and oriented x3. Patient's sputum culture results came back positive for Batsheva albicans. Will continue on Zosyn and doxycycline. Patient reported some dyspnea on exertion and has been placed on oxygen via nasal cannula2 liters/minute. Continues with productive cough. The V/Q scan results came back negative for PE. Will continue to monitor patient's care. PHYSICAL EXAM EYES: Anicteric. Pupils equal and reactive. HENT: No oral thrush seen, moist Oral mucosa. Hard of hearing, uses hearing aids. NECK: Supple, no JVD or thyromegaly. LUNGS: Good air entry. Crackles bilaterally. Productive cough. CARDIOVASCULAR: S1, S2 regular. No murmur heard. ABDOMEN: Soft, non tender, bowel sounds present, no organomegaly. CENTRAL NERVOUS SYSTEM: Awake, alert, oriented x 3. SKIN: No rashes, no swelling. LYMPHATICS: No peripheral lymphadenopathy. MUSCULOSKELETAL: No joint swelling, erythema or tenderness. EXTREMITIES: No cyanosis or clubbing. BACK: No deformity, no pressure ulcer. GENITOURINARY: No dysuria or hematuria. Vital Sign (Last 12 Hours) 07/15/24 07/15/24 07/15/24 07/15/24 06:19 06:20 06:20 06:23 Pulse 91 92 91 92 Resp 18 18 O2 Delivery N/A Room Air FiO2 21 07/15/24 07/15/24 07/15/24 07/15/24 08:00 08:01 09:44 11:06 Temp 97.9 97.9 Pulse 110 100 108 Resp 18 18 B/P (MAP) 137/81 136/64 Pulse Ox 94 94 95 O2 Delivery Room Air* CPAP Nasal Cannula O2 Flow Rate 0 2.0 FiO2 21 07/15/24 13:55 Pulse 93 Resp 18 Intake & Output (last 24hrs) 07/14/24 07/14/24 07/15/24 15:00 23:00 07:00 Intake Total 100.0 ml 550 ml 100.0 ml Output Total 150 ml Balance 100.0 ml 550 ml -50.0 ml LABS: Laboratory: Test 07/15/24 10:03 07/14/24 16:08 07/14/24 05:01 Range/Units White Blood Count 6.2 4.8-10.8 K/uL Red Blood Count 3.39 L 4.00-5.50 MIL/uL Hemoglobin 8.6 L 12.0-16.0 g/dL Hematocrit 27.3 L 36-48 % Mean Corpuscular Volume 80.5 79-99 fL Mean Corpuscular Hemoglobin 25.4 L 27.0-33.0 pg Mean Corpuscular Hemoglobin Concent 31.5 L 32.0-36.0 g/dL Red Cell Distribution Width 17.7 H 11.0-15.5 % Platelet Count 268 130-400 K/uL Mean Platelet Volume 10.2 7.5-10.5 fL Immature Granulocyte % (Auto) 0.6 0-1 % Neutrophils (%) (Auto) 82.6 H 40.0-77.0 % Lymphocytes (%) (Auto) 8.8 L 21.0-51.0 % Monocytes (%) (Auto) 6.7 3.0-13.0 % Eosinophils (%) (Auto) 1.0 0.0-8.0 % Basophils (%) (Auto) 0.3 0.0-5.0 % Neutrophils # (Auto) 5.2 1.8-7.7 K/uL Lymphocytes # (Auto) 0.6 L 1.0-4.8 K/uL Monocytes # (Auto) 0.4 0.1-1.0 K/uL Eosinophils # (Auto) 0.06 0.00-0.70 K/uL Basophils # (Auto) 0.02 0.00-0.20 K/uL Absolute Immature Granulocyte (auto 0.04 0-1 K/uL Nucleated Red Blood Cells 0.0 0.0-0.19 % Sodium Level 144 136-145 mmol/L Potassium Level 3.7 3.5-5.1 mmol/L Chloride Level 107 101-111 mmol/L Carbon Dioxide Level 34 H 21-32 mmol/L Blood Urea Nitrogen 33 H 7-18 mg/dL Creatinine 1.4 H 0.5-1.0 mg/dL Glomerular Filtration Rate Calc 36 >90 mL/min Random Glucose 106 H 70-105 mg/dL Total Calcium 8.7 8.5-10.1 mg/dL Magnesium Level 2.30 1.80-2.40 mg/dL Total Bilirubin 0.5 0.2-1.0 mg/dL Aspartate Amino Transf (AST/SGOT) 27 10-37 U/L Alanine Aminotransferase (ALT/SGPT) 24 12-78 U/L Alkaline Phosphatase 100 50-136 U/L Total Protein 5.7 L 6.0-8.3 g/dL Albumin 2.6 L 3.5-5.0 g/dL Iron Level 39 L 50-170 mcg/dL Vitamin B12 Level 1569 H 193-986 pg/mL Triglycerides Level 56 30-200 mg/dL Cholesterol Level 131 <200 mg/dL LDL Cholesterol 66 0-99 mg/dL HDL Cholesterol 57 35-85 mg/dL Thyroid Stimulating Hormone (TSH) 4.87 H 0.36-3.74 uIU/mL ASSESSMENT: Pneumonia with Batsheva albicans. Bilateral pleural effusion. History of pleural effusions with multiple thoracentesis with the last one in May of 2024. Atrial fibrillation. CAD. Hypercholesterolemia. COPD. Elevated D-dimer, PE ruled out. Renal failure. Anemia. Hypokalemia. Debility. Anemia. PLAN: Continue Zosyn IV. Continue doxycycline p.o. Continue bronchodilators. Continue Tessalon Perles 200 mg t.i.d. Continue bronchodilators. Oxygen support to keep O2 sat greater than 92%. Casino Duty Manager consulted and following. Continue Hypokalemia protocol. Continue Physical therapy. Avoid nephrotoxic medications. Continue iron supplements. This case was reviewed and discussed with my supervising physician and the above assessment and plan was formulated and agreed upon. ATTESTATION BY PHYSICIAN I have seen and examined the patient. I reviewed the documentation, medical decision making, and treatment plan as noted by the mid-level provider above. I agree with the findings and plan of care. TAMRA HOLT MD, MIRTA L NITROGLYCERIN NITRATOR OPERATOR BATCH Jul 15, 2024 16:33
[2024-07-16] VITALS (18 sets, daily range): BP systolic 123–171; BP diastolic 75–93; PULSE 80–113; RESP 16–20; TEMP 97.5–98.6; O2SAT 93–98
[2024-07-16 03:38] LABS: BASOPHILS # (AUTO) 0.03 K/uL (0.00-0.20); BASOPHILS % (AUTO) 0.5 % (0.0-5.0); EOSINOPHILS # (AUTO) 0.09 K/uL (0.00-0.70); EOSINOPHILS % (AUTO) 1.6 % (0.0-8.0); HEMATOCRIT 29.4 % (36-48); IMMATURE GRANULOCYTE ABSOLUTE 0.02 K/uL (0-1); LYMPHOCYTES # (AUTO) 0.9 K/uL (1.0-4.8); LYMPHOCYTES % (AUTO) 14.7 % (21.0-51.0); MEAN CORPUSCULAR HEMOGLOBIN 25.3 pg (27.0-33.0); MEAN CORPUSCULAR VOLUME 81.7 fL (79-99); MONOCYTES # (AUTO) 0.5 K/uL (0.1-1.0); MONOCYTES % (AUTO) 8.6 % (3.0-13.0); NEUTROPHILS # (AUTO) 4.3 K/uL (1.8-7.7); NEUTROPHILS % (AUTO) 74.3 % (40.0-77.0); PLATELET COUNT (AUTO) 248 K/uL (130-400); RED CELL DISTRIBUTION WIDTH 17.5 % (11.0-15.5); WHITE BLOOD COUNT (AUTO) 5.8 K/uL (4.8-10.8)
[2024-07-16 03:59] LABS: ALBUMIN 2.7 g/dL (3.5-5.0); BILIRUBIN,TOTAL 0.6 mg/dL (0.2-1.0); CREATININE 1.2 mg/dL (0.5-1.0); MAGNESIUM 2.4 mg/dL (1.80-2.40); POTASSIUM 3.5 mmol/L (3.5-5.1)
[2024-07-16 04:00] LABS: B-TYPE NATRIURETIC PEPTIDE 213 pg/mL (0-100)
[2024-07-16 12:12] LABS: CHLAM.PNEUMONIAE IGM TITER <1:10 (Neg:<1:10)
--- NOTE | 2024-07-16 13:58 | PN ---
[facility] PROGRESS NOTE Date Patient Seen: Jul 16, 2024 Time of Visit: 13:58 Supervising Physician: Dr. Tala Vann Primary Care Physician: [Dr. Chin ] Outpatient Specialists: [ ] Inpatient Consults: [ BIS team: pulmo] PROBLEM LIST: Right lower lobe arfgcdphk-gimaotfh-waodsczyu-POA Moderate right and small left pleural effusion -POA Persistent dyspnea, worst on exertion-POA CONSTANCE-POA Normocytic, hypochromic anemia-POA Leukopenia, mild-POA HX of large pleural effusion with thoracentesis - A-Fib - not on anticoagulation d/t hx of bleed PLAN SUMMARY: Supplemental oxygen as needed Start Mucomyst nebulized treatment Patient currently on room air Continue IV Lasix 40 mg b.i.d. Continue Zosyn Continue doxycycline Chest x-ray in a.m. Replace potassium via protocol No need for thoracentesis at this time INTERVAL HISTORY: Patient evaluated at bedside with family present. Patient is currently on room air, no signs of shortness of breath or respiratory distress. She continues with upper airway congestion, bilateral lung bases are clear to auscultation. Patient feels she is still benefitting from Mucomyst nebulizer treatments so we will we have this on her chart at this time. Patient had several questions regarding the possibility of physical therapy after discharge, patient was educated on the requirements for SNF facility versus the possibility of home PT through her PCP, primary team notified of the patient's questions. Patient remained stable, no further interventions necessary from a pulmonary standpoint. Disposition per primary. REVIEW OF SYSTEMS: 12 point ROS reviewed with patient. Pertinent positives mentioned above. Otherw ise negative. PHYSICAL EXAM: GENERAL: alert, weak, awake oriented x 3 HEENT: EOMI, Sclera non icteric, moist mucosa , extremely hard of hearing NECK: Supple, no JVD, trachea midline LUNGS: Diminished breath sounds bilaterally. No wheezes, rhonchi or rales HEART: Regular rate and rhythm. Normal S1 and S2, without murmurs ABD: Abdomen soft, nontender. Bowel sounds present EXT: No clubbing cyanosis or edema NEURO: Alert and oriented to person, follows commands Vital Signs (last 8hr) Date Time Temp Pulse Resp B/P (MAP) Pulse Ox O2 Delivery O2 Flow Rate FiO2 07/16/24 11:48 97.9 97 20 158/78 99 Room Air 07/16/24 10:25 92 20 07/16/24 10:24 92 20 N/A Room Air 21 07/16/24 07:55 98.6 113 20 123/93 98 Room Air 07/16/24 06:26 104 20 07/16/24 06:25 104 20 N/A Room Air 21 LABS: Hematology Labs: Test 07/16/24 03:30 Range/Units White Blood Count 5.8 4.8-10.8 K/uL Red Blood Count 3.60 L 4.00-5.50 MIL/uL Hemoglobin 9.1 L 12.0-16.0 g/dL Hematocrit 29.4 L 36-48 % Mean Corpuscular Volume 81.7 79-99 fL Mean Corpuscular Hemoglobin 25.3 L 27.0-33.0 pg Mean Corpuscular Hemoglobin Concent 31.0 L 32.0-36.0 g/dL Red Cell Distribution Width 17.5 H 11.0-15.5 % Platelet Count 248 130-400 K/uL Mean Platelet Volume 10.0 7.5-10.5 fL Immature Granulocyte % (Auto) 0.3 0-1 % Neutrophils (%) (Auto) 74.3 40.0-77.0 % Lymphocytes (%) (Auto) 14.7 L 21.0-51.0 % Monocytes (%) (Auto) 8.6 3.0-13.0 % Eosinophils (%) (Auto) 1.6 0.0-8.0 % Basophils (%) (Auto) 0.5 0.0-5.0 % Neutrophils # (Auto) 4.3 1.8-7.7 K/uL Lymphocytes # (Auto) 0.9 L 1.0-4.8 K/uL Monocytes # (Auto) 0.5 0.1-1.0 K/uL Eosinophils # (Auto) 0.09 0.00-0.70 K/uL Basophils # (Auto) 0.03 0.00-0.20 K/uL Absolute Immature Granulocyte (auto 0.02 0-1 K/uL Nucleated Red Blood Cells 0.0 0.0-0.19 % Red Blood Cell Morphology See comments Chemistry Labs: Test 07/16/24 03:30 07/14/24 16:08 Range/Units Sodium Level 146 H 136-145 mmol/L Potassium Level 3.5 3.5-5.1 mmol/L Chloride Level 108 101-111 mmol/L Carbon Dioxide Level 31 21-32 mmol/L Blood Urea Nitrogen 32 H 7-18 mg/dL Creatinine 1.2 H 0.5-1.0 mg/dL Glomerular Filtration Rate Calc 44 >90 mL/min Random Glucose 94 70-105 mg/dL Total Calcium 9.2 8.5-10.1 mg/dL Magnesium Level 2.40 1.80-2.40 mg/dL Total Bilirubin 0.6 0.2-1.0 mg/dL Aspartate Amino Transf (AST/SGOT) 35 10-37 U/L Alanine Aminotransferase (ALT/SGPT) 22 12-78 U/L Alkaline Phosphatase 106 50-136 U/L B-Type Natriuretic Peptide 213 H 0-100 pg/mL Total Protein 6.0 6.0-8.3 g/dL Albumin 2.7 L 3.5-5.0 g/dL Iron Level 39 L 50-170 mcg/dL Vitamin B12 Level 1569 H 193-986 pg/mL Vitamin D 25-Hydroxy 50.7 30.0-100.0 ng/mL DIAGNOSTICS / RADIOLOGY RESULTS: [ ] PLAN NEURO: Minimize central acting medications as possible. Maintain fall precautions, adequate lighting during the day PULMONARY: Supplemental 02 as needed. Maintain aspiration precautions at all times CARDIOVASCULAR: Follow hemodynamics. Vital signs per facility protocol GI & NUTRITION: Continue with nutritional support. Continue stool softeners and laxatives as needed. KIDNEYS & ELECTROLYTES: Strict monitoring of intake, output and overall fluid balance. Avoid nephrotoxic medications to the extent possible. Medications to be dosed according to renal function. Monitor electrolytes and replace as needed ENDOCRINE: Maintain blood glucose between 100-180 at all times. Hypoglycemia protocol in place INFECTIOUS DISEASE: Trend temperature, WBC and procalcitonin level Follow cultures, deescalate antibiotics as soon as possible. Panculture if new onset fever ONCOLOGY/HEMATOLOGY/COAGULATION: Monitor for s/s of bleeding Monitor hemoglobin, coagulation studies as needed SKIN: Pressure ulcer prevention per facility protocol Specialty mattress ORTHO/REHAB: Continue PT/OT Prophylaxis: Continue GI and DVT prophylaxis Code Status: Full Resuscitation Disposition: As per attending Other: Total patient care time: 35 minutes DAVID WELLER Jul 16, 2024 13:58
--- NOTE | 2024-07-16 22:32 | PN ---
INFECTIOUS DISEASE PROGRESS NOTE Date of Service: Jul 16, 2024 SUBJECTIVE: Patient was seen and examined at bedside in room 402. Patient is awake, alert and oriented x3. Patient reported some improvement with her cough. Crackles on auscultation. No fever, temperature is 97.9 and a WBC of 5.8. Renal function improving, BUN 32 and creatinine 1.2. Will continue on Zosyn and doxycycline. Patient stated she feels very weak and would like to go to a rehab facility for a couple of days. We will have case management evaluate for referral to [place]. Will continue to monitor patient's care. PHYSICAL EXAM EYES: Anicteric. Pupils equal and reactive. HENT: No oral thrush seen, moist Oral mucosa. Hard of hearing, uses hearing aids. NECK: Supple, no JVD or thyromegaly. LUNGS: Good air entry. Crackles bilaterally. Productive cough. CARDIOVASCULAR: S1, S2 regular. No murmur heard. ABDOMEN: Soft, non tender, bowel sounds present, no organomegaly. CENTRAL NERVOUS SYSTEM: Awake, alert, oriented x 3. SKIN: No rashes, no swelling. LYMPHATICS: No peripheral lymphadenopathy. MUSCULOSKELETAL: No joint swelling, erythema or tenderness. EXTREMITIES: No cyanosis or clubbing.Weak. BACK: No deformity, no pressure ulcer. GENITOURINARY: No dysuria or hematuria. Vital Sign (Last 12 Hours) 07/16/24 07/16/24 07/16/24 07/16/24 11:48 14:22 14:23 16:31 Temp 97.9 97.5 Pulse 97 89 89 96 Resp 20 20 20 16 B/P (MAP) 158/78 152/76 Pulse Ox 99 99 O2 Delivery Room Air N/A Room Air Room Air FiO2 21 07/16/24 07/16/24 07/16/24 18:41 18:42 19:54 Temp 98.1 Pulse 80 80 93 Resp 20 20 20 B/P (MAP) 171/75 Pulse Ox 94 O2 Delivery N/A Room Air Room Air FiO2 21 Intake & Output (last 24hrs) 07/15/24 07/15/24 07/16/24 15:00 23:00 07:00 Intake Total 1175 ml 50.0 ml Output Total 500 ml Balance 1175 ml -450.0 ml LABS: Laboratory: Test 2/20/25 03:30 Range/Units White Blood Count 5.8 4.8-10.8 K/uL Red Blood Count 3.60 L 4.00-5.50 MIL/uL Hemoglobin 9.1 L 12.0-16.0 g/dL Hematocrit 29.4 L 36-48 % Mean Corpuscular Volume 81.7 79-99 fL Mean Corpuscular Hemoglobin 25.3 L 27.0-33.0 pg Mean Corpuscular Hemoglobin Concent 31.0 L 32.0-36.0 g/dL Red Cell Distribution Width 17.5 H 11.0-15.5 % Platelet Count 248 130-400 K/uL Mean Platelet Volume 10.0 7.5-10.5 fL Immature Granulocyte % (Auto) 0.3 0-1 % Neutrophils (%) (Auto) 74.3 40.0-77.0 % Lymphocytes (%) (Auto) 14.7 L 21.0-51.0 % Monocytes (%) (Auto) 8.6 3.0-13.0 % Eosinophils (%) (Auto) 1.6 0.0-8.0 % Basophils (%) (Auto) 0.5 0.0-5.0 % Neutrophils # (Auto) 4.3 1.8-7.7 K/uL Lymphocytes # (Auto) 0.9 L 1.0-4.8 K/uL Monocytes # (Auto) 0.5 0.1-1.0 K/uL Eosinophils # (Auto) 0.09 0.00-0.70 K/uL Basophils # (Auto) 0.03 0.00-0.20 K/uL Absolute Immature Granulocyte (auto 0.02 0-1 K/uL Nucleated Red Blood Cells 0.0 0.0-0.19 % Red Blood Cell Morphology See comments Sodium Level 146 H 136-145 mmol/L Potassium Level 3.5 3.5-5.1 mmol/L Chloride Level 108 101-111 mmol/L Carbon Dioxide Level 31 21-32 mmol/L Blood Urea Nitrogen 32 H 7-18 mg/dL Creatinine 1.2 H 0.5-1.0 mg/dL Glomerular Filtration Rate Calc 44 >90 mL/min Random Glucose 94 70-105 mg/dL Total Calcium 9.2 8.5-10.1 mg/dL Magnesium Level 2.40 1.80-2.40 mg/dL Total Bilirubin 0.6 0.2-1.0 mg/dL Aspartate Amino Transf (AST/SGOT) 35 10-37 U/L Alanine Aminotransferase (ALT/SGPT) 22 12-78 U/L Alkaline Phosphatase 106 50-136 U/L B-Type Natriuretic Peptide 213 H 0-100 pg/mL Total Protein 6.0 6.0-8.3 g/dL Albumin 2.7 L 3.5-5.0 g/dL ASSESSMENT: Pneumonia with Batsheva albicans. Bilateral pleural effusion. History of pleural effusions with multiple thoracentesis with the last one in May of 2024. Atrial fibrillation. CAD. Hypercholesterolemia. COPD. Elevated D-dimer, PE ruled out. Renal failure. Anemia. Hypokalemia. Debility. Anemia. PLAN: Case management evaluation for referral to [place]. Continue Zosyn IV. Continue doxycycline p.o. Continue bronchodilators. Continue Tessalon Perles 200 mg t.i.d. Continue bronchodilators. Oxygen support to keep O2 sat greater than 92%. Jelly Filter Tender consulted and following. Continue Hypokalemia protocol. Continue Physical therapy. Avoid nephrotoxic medications. Continue iron supplements. This case was reviewed and discussed with my supervising physician and the above assessment and plan was formulated and agreed upon. ATTESTATION BY PHYSICIAN I have seen and examined the patient. I reviewed the documentation, medical decision making, and treatment plan as noted by the mid-level provider above. I agree with the findings and plan of care. TAMRA HOLT MD, MIRTA L DRY CAN TENDER Jul 16, 2024 22:32
[2024-07-17] VITALS (16 sets, daily range): BP systolic 132–162; BP diastolic 73–83; PULSE 87–104; RESP 18–20; TEMP 97.4–98.2; O2SAT 91–95
--- NOTE | 2024-07-17 13:26 | PN ---
INFECTIOUS DISEASE PROGRESS NOTE Date of Service: Jul 17, 2024 SUBJECTIVE: Patient was seen and examined at bedside in room 402. Patient is awake, alert and oriented x3. Patient is sitting up on the bedside chair. Per nursing report patient ambulated 200 ft in hallway without getting short of breath. Patient is afebrile, temperature is 97.3 and a WBC of 5.8. The final sputum culture results grew E coli and Batsheva albicans. Patient continues on Zosyn and doxycycline. Pending case management evaluation for referral to [place]. Will continue to monitor patient's care. PHYSICAL EXAM EYES: Anicteric. Pupils equal and reactive. HENT: No oral thrush seen, moist Oral mucosa. Hard of hearing, uses hearing aids. NECK: Supple, no JVD or thyromegaly. LUNGS: Good air entry. Crackles bilaterally. Productive cough. CARDIOVASCULAR: S1, S2 regular. No murmur heard. ABDOMEN: Soft, non tender, bowel sounds present, no organomegaly. CENTRAL NERVOUS SYSTEM: Awake, alert, oriented x 3. SKIN: No rashes, no swelling. LYMPHATICS: No peripheral lymphadenopathy. MUSCULOSKELETAL: No joint swelling, erythema or tenderness. EXTREMITIES: No cyanosis or clubbing.Weak. BACK: No deformity, no pressure ulcer. GENITOURINARY: No dysuria or hematuria. Vital Sign (Last 12 Hours) 07/17/24 07/17/24 07/17/24 07/17/24 02:07 03:29 06:21 06:23 Temp 98.2 Pulse 90 87 91 91 Resp 20 20 20 20 B/P (MAP) 149/78 Pulse Ox 95 O2 Delivery CPAP N/A Room Air FiO2 21 07/17/24 07/17/24 07/17/24 07/17/24 08:00 10:52 10:53 12:00 Temp 97.3 97.9 Pulse 90 96 96 104 Resp 18 20 20 18 B/P (MAP) 160/73 132/79 Pulse Ox 88 90 O2 Delivery Room Air N/A Room Air Room Air FiO2 21 Intake & Output (last 24hrs) 07/16/24 07/16/24 07/17/24 15:00 23:00 07:00 Intake Total 1250 ml 50.0 ml Output Total 200 ml Balance 1250 ml -150.0 ml LABS: Laboratory: Test 07/16/24 03:30 Range/Units White Blood Count 5.8 4.8-10.8 K/uL Red Blood Count 3.60 L 4.00-5.50 MIL/uL Hemoglobin 9.1 L 12.0-16.0 g/dL Hematocrit 29.4 L 36-48 % Mean Corpuscular Volume 81.7 79-99 fL Mean Corpuscular Hemoglobin 25.3 L 27.0-33.0 pg Mean Corpuscular Hemoglobin Concent 31.0 L 32.0-36.0 g/dL Red Cell Distribution Width 17.5 H 11.0-15.5 % Platelet Count 248 130-400 K/uL Mean Platelet Volume 10.0 7.5-10.5 fL Immature Granulocyte % (Auto) 0.3 0-1 % Neutrophils (%) (Auto) 74.3 40.0-77.0 % Lymphocytes (%) (Auto) 14.7 L 21.0-51.0 % Monocytes (%) (Auto) 8.6 3.0-13.0 % Eosinophils (%) (Auto) 1.6 0.0-8.0 % Basophils (%) (Auto) 0.5 0.0-5.0 % Neutrophils # (Auto) 4.3 1.8-7.7 K/uL Lymphocytes # (Auto) 0.9 L 1.0-4.8 K/uL Monocytes # (Auto) 0.5 0.1-1.0 K/uL Eosinophils # (Auto) 0.09 0.00-0.70 K/uL Basophils # (Auto) 0.03 0.00-0.20 K/uL Absolute Immature Granulocyte (auto 0.02 0-1 K/uL Nucleated Red Blood Cells 0.0 0.0-0.19 % Red Blood Cell Morphology See comments Sodium Level 146 H 136-145 mmol/L Potassium Level 3.5 3.5-5.1 mmol/L Chloride Level 108 101-111 mmol/L Carbon Dioxide Level 31 21-32 mmol/L Blood Urea Nitrogen 32 H 7-18 mg/dL Creatinine 1.2 H 0.5-1.0 mg/dL Glomerular Filtration Rate Calc 44 >90 mL/min Random Glucose 94 70-105 mg/dL Total Calcium 9.2 8.5-10.1 mg/dL Magnesium Level 2.40 1.80-2.40 mg/dL Total Bilirubin 0.6 0.2-1.0 mg/dL Aspartate Amino Transf (AST/SGOT) 35 10-37 U/L Alanine Aminotransferase (ALT/SGPT) 22 12-78 U/L Alkaline Phosphatase 106 50-136 U/L B-Type Natriuretic Peptide 213 H 0-100 pg/mL Total Protein 6.0 6.0-8.3 g/dL Albumin 2.7 L 3.5-5.0 g/dL ASSESSMENT: Pneumonia with E coli and Batsheva albicans. Bilateral pleural effusion. History of pleural effusions with multiple thoracentesis with the last one in May of 2024. Atrial fibrillation. CAD. Hypercholesterolemia. COPD. Elevated D-dimer, PE ruled out. Renal failure. Anemia. Hypokalemia. Debility. Anemia. PLAN: Case management evaluation for referral to [place]. Continue Zosyn IV. Continue doxycycline p.o. Continue bronchodilators. Continue Tessalon Perles 200 mg t.i.d. Continue bronchodilators. Oxygen support to keep O2 sat greater than 92%. Transportation Planner consulted and following. Continue Hypokalemia protocol. Continue Physical therapy. Avoid nephrotoxic medications. Continue iron supplements. This case was reviewed and discussed with my supervising physician and the above assessment and plan was formulated and agreed upon. ATTESTATION BY PHYSICIAN I have seen and examined the patient. I reviewed the documentation, medical decision making, and treatment plan as noted by the mid-level provider above. I agree with the findings and plan of care. TAMRA HOLT MD, MIRTA L MOTOR INSTALLER Jul 17, 2024 13:26
--- NOTE | 2024-07-17 14:00 | HMCIMG ---
CHEST 1VW REASON: EFFUSION COMPARISON: 07/14/2024 FINDINGS: There is a moderate right pleural effusion with partial atelectasis of the right lower lobe, unchanged. There is a small left effusion. Lungs are otherwise clear. Heart size is stable with no vascular congestion. IMPRESSION: 1. Moderate right pleural effusion with partial atelectasis of the right lower lobe, there is a small left effusion as well.
[2024-07-17] MEDS: furoSEMIDE 40 MG TABLET PO ONE (14:58)
[2024-07-17 16:41] LABS: INR 1.01 (0.85-1.15); PROTHROMBIN TIME 10.7 SEC (9.6-11.6)
--- NOTE | 2024-07-17 16:49 | PN ---
[facility] PROGRESS NOTE Date Patient Seen: Jul 17, 2024 Time of Visit: 16:44 Supervising Physician: SHEY BATISTA Primary Care Physician: [Dr. Chin ] Outpatient Specialists: [ ] Inpatient Consults: [ BIS team: pulmo] PROBLEM LIST: Right lower lobe izuadixya-rvccviwb-[id number]-POA Moderate right and small left pleural effusion -POA Persistent dyspnea, worst on exertion-POA CONSTANCE-POA Normocytic, hypochromic anemia-POA Leukopenia, mild-POA HX of large pleural effusion with thoracentesis - A-Fib - not on anticoagulation d/t hx of bleed PLAN SUMMARY: Supplemental oxygen as needed Start Mucomyst nebulized treatment Patient currently on room air resume torsemide, Order Echocardiogram rpt cxr in AM -Considering Thoracentesis if no improvement Continue Zosyn Continue doxycycline Replace potassium via protocol INTERVAL HISTORY: Patient was seen and examined today by me at bedside, she i a status post ambu lation with physical therapy, post ambulation sats were at 95%. She was somewhat dyspneic with occasional cough but not hypoxic. She does express concern regarding her torsemide and would like to have it continued. CXR continues to reval moderate size right sided effusion, Will repeat CXR in AM and discuss possibility of thoracentesis in AM . REVIEW OF SYSTEMS: 12 point ROS reviewed with patient. Pertinent positives mentioned above. Otherwise negative. PHYSICAL EXAM: GENERAL: alert, weak, awake oriented x 3 HEENT: EOMI, Sclera non icteric, moist mucosa , extremely hard of hearing NECK: Supple, no JVD, trachea midline LUNGS: Diminished breath sounds R>L No wheezes, rhonchi or rales HEART: Regular rate and rhythm. Normal S1 and S2, without murmurs ABD: Abdomen soft, nontender. Bowel sounds present EXT: No clubbing cyanosis or edema NEURO: Alert and oriented to person, follows commands Vital Signs (last 8hr) Date Time Temp Pulse Resp B/P (MAP) Pulse Ox O2 Delivery O2 Flow Rate FiO2 07/17/24 14:20 101 20 07/17/24 14:19 101 20 N/A Room Air 21 07/17/24 12:00 97.9 104 18 132/79 90 Room Air 07/17/24 10:53 96 20 07/17/24 10:52 96 20 N/A Room Air 21 LABS: Hematology Labs: Test 07/16/24 03:30 Range/Units White Blood Count 5.8 4.8-10.8 K/uL Red Blood Count 3.60 L 4.00-5.50 MIL/uL Hemoglobin 9.1 L 12.0-16.0 g/dL Hematocrit 29.4 L 36-48 % Mean Corpuscular Volume 81.7 79-99 fL Mean Corpuscular Hemoglobin 25.3 L 27.0-33.0 pg Mean Corpuscular Hemoglobin Concent 31.0 L 32.0-36.0 g/dL Red Cell Distribution Width 17.5 H 11.0-15.5 % Platelet Count 248 130-400 K/uL Mean Platelet Volume 10.0 7.5-10.5 fL Immature Granulocyte % (Auto) 0.3 0-1 % Neutrophils (%) (Auto) 74.3 40.0-77.0 % Lymphocytes (%) (Auto) 14.7 L 21.0-51.0 % Monocytes (%) (Auto) 8.6 3.0-13.0 % Eosinophils (%) (Auto) 1.6 0.0-8.0 % Basophils (%) (Auto) 0.5 0.0-5.0 % Neutrophils # (Auto) 4.3 1.8-7.7 K/uL Lymphocytes # (Auto) 0.9 L 1.0-4.8 K/uL Monocytes # (Auto) 0.5 0.1-1.0 K/uL Eosinophils # (Auto) 0.09 0.00-0.70 K/uL Basophils # (Auto) 0.03 0.00-0.20 K/uL Absolute Immature Granulocyte (auto 0.02 0-1 K/uL Nucleated Red Blood Cells 0.0 0.0-0.19 % Red Blood Cell Morphology See comments Chemistry Labs: Test 07/16/24 03:30 Range/Units Sodium Level 146 H 136-145 mmol/L Potassium Level 3.5 3.5-5.1 mmol/L Chloride Level 108 101-111 mmol/L Carbon Dioxide Level 31 21-32 mmol/L Blood Urea Nitrogen 32 H 7-18 mg/dL Creatinine 1.2 H 0.5-1.0 mg/dL Glomerular Filtration Rate Calc 44 >90 mL/min Random Glucose 94 70-105 mg/dL Total Calcium 9.2 8.5-10.1 mg/dL Magnesium Level 2.40 1.80-2.40 mg/dL Total Bilirubin 0.6 0.2-1.0 mg/dL Aspartate Amino Transf (AST/SGOT) 35 10-37 U/L Alanine Aminotransferase (ALT/SGPT) 22 12-78 U/L Alkaline Phosphatase 106 50-136 U/L B-Type Natriuretic Peptide 213 H 0-100 pg/mL Total Protein 6.0 6.0-8.3 g/dL Albumin 2.7 L 3.5-5.0 g/dL Coagulation Labs: Test 07/17/24 16:10 Range/Units Prothrombin Time 10.7 9.6-11.6 SEC Prothromb Time International Ratio 1.01 0.85-1.15 DIAGNOSTICS / RADIOLOGY RESULTS: [ ] PLAN NEURO: Minimize central acting medications as possible. Maintain fall precautions, adequate lighting during the day PULMONARY: Supplemental 02 as needed. Maintain aspiration precautions at all times CARDIOVASCULAR: Follow hemodynamics. Vital signs per facility protocol GI & NUTRITION: Continue with nutritional support. Continue stool softeners and laxatives as needed. KIDNEYS & ELECTROLYTES: Strict monitoring of intake, output and overall fluid balance. Avoid nephrotoxic medications to the extent possible. Medications to be dosed according to renal function. Monitor electrolytes and replace as needed ENDOCRINE: Maintain blood glucose between 100-180 at all times. Hypoglycemia protocol in place INFECTIOUS DISEASE: Trend temperature, WBC and procalcitonin level Follow cultures, deescalate antibiotics as soon as possible. Panculture if new onset fever ONCOLOGY/HEMATOLOGY/COAGULATION: Monitor for s/s of bleeding Monitor hemoglobin, coagulation studies as needed SKIN: Pressure ulcer prevention per facility protocol Specialty mattress ORTHO/REHAB: Continue PT/OT Prophylaxis: Continue GI and DVT prophylaxis Code Status: Full Resuscitation Disposition: As per attending Other: Total patient care time: 35 minutes ZAY ROMAN Jul 17, 2024 16:49
[2024-07-17] MEDS: acetylCYSTeine10% 4ML VIAL IH SCH (19:06)
[2024-07-18] VITALS (13 sets, daily range): BP systolic 135–163; BP diastolic 68–84; PULSE 81–97; RESP 18–20; TEMP 98–98.7; O2SAT 93–98
[2024-07-18 04:38] LABS: BASOPHILS # (AUTO) 0.02 K/uL (0.00-0.20); BASOPHILS % (AUTO) 0.3 % (0.0-5.0); EOSINOPHILS % (AUTO) 1.5 % (0.0-8.0); HEMATOCRIT 27.8 % (36-48); IMMATURE GRANULOCYTE ABSOLUTE 0.03 K/uL (0-1); LYMPHOCYTES # (AUTO) 0.7 K/uL (1.0-4.8); MEAN CORPUSCULAR HEMOGLOBIN 25.4 pg (27.0-33.0); MEAN CORPUSCULAR HGB CONC 31.7 g/dL (32.0-36.0); MEAN CORPUSCULAR VOLUME 80.1 fL (79-99); MONOCYTES # (AUTO) 0.5 K/uL (0.1-1.0); MONOCYTES % (AUTO) 7.8 % (3.0-13.0); NEUTROPHILS # (AUTO) 5.3 K/uL (1.8-7.7); NEUTROPHILS % (AUTO) 78.9 % (40.0-77.0); PLATELET COUNT (AUTO) 272 K/uL (130-400); RED BLOOD CELL COUNT(AUTO) 3.47 MIL/uL (4.00-5.50); RED CELL DISTRIBUTION WIDTH 17.4 % (11.0-15.5); WHITE BLOOD COUNT (AUTO) 6.7 K/uL (4.8-10.8)
[2024-07-18 04:51] LABS: CREATININE 1.3 mg/dL (0.5-1.0); MAGNESIUM 2.4 mg/dL (1.80-2.40); POTASSIUM 3.2 mmol/L (3.5-5.1)
[2024-07-18 05:00] LABS: B-TYPE NATRIURETIC PEPTIDE 127 pg/mL (0-100)
--- NOTE | 2024-07-18 06:46 | HMCIMG ---
CHEST 1VW HISTORY: Congestion COMPARISON: 07/17/2024 FINDINGS: A frontal projection of the chest was obtained. Bilateral pulmonary infiltrates are seen with right more than left worse from previous study. The heart is borderline enlarged. All the lines and tubes are again seen in place. Aortic calcifications are seen. IMPRESSION: 1. Bilateral pulmonary infiltrates with right more than left worse from previous study.
[2024-07-18] MEDS: TORSEMIDE 20 MG TAB PO SCH (08:51)
[2024-07-18] MEDS ORDERED: furoSEMIDE 40 MG TABLET PO SCH (09:00)
--- NOTE | 2024-07-18 18:40 | DS ---
DATE OF SERVICE: 07/18/2024. PRESENTING COMPLAINT: Cough with shortness of breath. HOSPITAL COURSE: An 88-year-old female with history of hypertension, atrial fibrillation, obesity, coronary artery disease, who presented to the hospital with cough, shortness of breath. The patient was found with hypoxic respiratory failure and pneumonia. The patient was started on broad-spectrum antibiotics including Zosyn and doxycycline. The patient was evaluated by shoelace tipping machine operator. The patient continued with persistent cough. The patient's home medications were resumed. Due to debility and the current antibiotics, the patient has been accepted and will go for SNF. FINAL DISCHARGE DIAGNOSES: 1. Pneumonia. 2. Hypertension. 3. Atrial fibrillation. 4. Coronary artery disease. 5. Chronic obstructive pulmonary disease. 6. Debility. PLAN: * The patient to be discharged to SNF. * Continue antihypertensive. * Continue antitussives. * Continue doxycycline. * Continue bronchodilator. * Continue pain management. * The patient will follow up with primary care physician. TID: [id number] RECEIPT: [id number]
--- NOTE | 2024-07-18 19:24 | PN ---
[facility] PROGRESS NOTE Date Patient Seen: Jul 18, 2024 Time of Visit: 19:19 Supervising Physician: BIJAN KAT MD Primary Care Physician: [Dr. Chin ] Outpatient Specialists: [ ] Inpatient Consults: [ BIS team: pulmo] PROBLEM LIST: Recurrent pleural effusion to the right lung Acute hypoxic respiratory failure Atrial fibrillation Leukopenia Acute kidney injury on top of CKD Essential hypertension INTERVAL HISTORY: Mrs. Bey is resting in bed, complains of orthopnea and dyspnea No fevers reported, still having cough, no hemoptysis patient has persistent dyspnea with minimal exertion O2 saturation drops with exertion O2 at 94% at rest on room air REVIEW OF SYSTEMS: 12 point ROS reviewed with patient. Pertinent positives mentioned above. Otherwise negative. PHYSICAL EXAM: GENERAL: alert, weak, awake oriented x 3 HEENT: EOMI, Sclera non icteric, moist mucosa , extremely hard of hearing NECK: Supple, no JVD, trachea midline LUNGS: Crackles to the right lung base HEART: Regular rate and rhythm. Normal S1 and S2, without murmurs ABD: Abdomen soft, nontender. Bowel sounds present EXT: No clubbing cyanosis or edema NEURO: Alert and oriented to person, follows commands Vital Signs (last 8hr) Date Time Temp Pulse Resp B/P (MAP) Pulse Ox O2 Delivery O2 Flow Rate FiO2 07/18/24 18:41 92 19 07/18/24 12:00 98.4 87 20 158/76 100 Room Air 21 07/18/24 11:38 91 20 07/18/24 11:37 91 20 N/A Room Air 21 LABS: Hematology Labs: Test 07/18/24 04:25 Range/Units White Blood Count 6.7 4.8-10.8 K/uL Red Blood Count 3.47 L 4.00-5.50 MIL/uL Hemoglobin 8.8 L 12.0-16.0 g/dL Hematocrit 27.8 L 36-48 % Mean Corpuscular Volume 80.1 79-99 fL Mean Corpuscular Hemoglobin 25.4 L 27.0-33.0 pg Mean Corpuscular Hemoglobin Concent 31.7 L 32.0-36.0 g/dL Red Cell Distribution Width 17.4 H 11.0-15.5 % Platelet Count 272 130-400 K/uL Mean Platelet Volume 10.0 7.5-10.5 fL Immature Granulocyte % (Auto) 0.5 0-1 % Neutrophils (%) (Auto) 78.9 H 40.0-77.0 % Lymphocytes (%) (Auto) 11.0 L 21.0-51.0 % Monocytes (%) (Auto) 7.8 3.0-13.0 % Eosinophils (%) (Auto) 1.5 0.0-8.0 % Basophils (%) (Auto) 0.3 0.0-5.0 % Neutrophils # (Auto) 5.3 1.8-7.7 K/uL Lymphocytes # (Auto) 0.7 L 1.0-4.8 K/uL Monocytes # (Auto) 0.5 0.1-1.0 K/uL Eosinophils # (Auto) 0.10 0.00-0.70 K/uL Basophils # (Auto) 0.02 0.00-0.20 K/uL Absolute Immature Granulocyte (auto 0.03 0-1 K/uL Nucleated Red Blood Cells 0.0 0.0-0.19 % Chemistry Labs: Test 07/18/24 04:25 Range/Units Sodium Level 144 136-145 mmol/L Potassium Level 3.2 L 3.5-5.1 mmol/L Chloride Level 107 101-111 mmol/L Carbon Dioxide Level 32 21-32 mmol/L Blood Urea Nitrogen 33 H 7-18 mg/dL Creatinine 1.3 H 0.5-1.0 mg/dL Glomerular Filtration Rate Calc 40 >90 mL/min Random Glucose 97 70-105 mg/dL Total Calcium 8.7 8.5-10.1 mg/dL Magnesium Level 2.40 1.80-2.40 mg/dL B-Type Natriuretic Peptide 127 H 0-100 pg/mL Coagulation Labs: Test 07/17/24 16:10 Range/Units Prothrombin Time 10.7 9.6-11.6 SEC Prothromb Time International Ratio 1.01 0.85-1.15 DIAGNOSTICS / RADIOLOGY RESULTS: [ Chest x-ray reviewed: Moderate and recurrent pleural effusion to the right lung ] PLAN - consent for right lung thoracentesis tomorrow morning - off anticoagulants - thoracentesis due to persistent dyspnea NEURO: Minimize central acting medications as possible. Maintain fall precautions, adequate lighting during the day PULMONARY: Supplemental 02 as needed. Maintain aspiration precautions at all times CARDIOVASCULAR: Follow hemodynamics. Vital signs per facility protocol GI & NUTRITION: Continue with nutritional support. Continue stool softeners and laxatives as needed. KIDNEYS & ELECTROLYTES: Strict monitoring of intake, output and overall fluid balance. Avoid nephrotoxic medications to the extent possible. Medications to be dosed according to renal function. Monitor electrolytes and replace as needed ENDOCRINE: Maintain blood glucose between 100-180 at all times. Hypoglycemia protocol in place INFECTIOUS DISEASE: Trend temperature, WBC and procalcitonin level Follow cultures, deescalate antibiotics as soon as possible. Panculture if new onset fever ONCOLOGY/HEMATOLOGY/COAGULATION: Monitor for s/s of bleeding Monitor hemoglobin, coagulation studies as needed SKIN: Pressure ulcer prevention per facility protocol Specialty mattress ORTHO/REHAB: Continue PT/OT Prophylaxis: Continue GI and DVT prophylaxis Code Status: Full Resuscitation Disposition: As per attending Other: Total patient care time: 35 minutes Progress note scribed by Leroy Kim and I can attest to the accuracy of the note. I personally scribed for BIJAN KAT MD ([email or web address]) on 07/18/24 at 19:24. Electronically submitted by Leroy Kim ([email or web address]). BIJAN KAT MD Jul 18, 2024 19:24
[2024-07-19] VITALS (11 sets, daily range): BP systolic 122–161; BP diastolic 57–93; PULSE 70–96; RESP 18–20; TEMP 97.3–99.1; O2SAT 93–97
--- NOTE | 2024-07-19 15:35 | PN ---
INFECTIOUS DISEASE PROGRESS NOTE Date of Service: Jul 19, 2024 SUBJECTIVE: Ivan 88-year-old female patient is being seen today at bedside. She is sitting in chair at this time. She denies chest pain or palpitation. She remains on oxygen via nasal canula in no respiratory distress. Patient remains on antibiotics tolerating well. Patient will be evaluated by pulmonology team today for possible thoracentesis. Patient's denies abdominal discomfort. No dysuria or hematuria. No diarrhea or constipation. No acute event overnight. We will continue to follow patient. Close. PHYSICAL EXAM EYES: Anicteric. Pupils equal and reactive. HENT: No oral thrush seen, moist Oral mucosa. Hard of hearing, uses hearing aids. NECK: Supple, no JVD or thyromegaly. LUNGS: Good air entry. Crackles bilaterally. Productive cough. CARDIOVASCULAR: S1, S2 regular. No murmur heard. ABDOMEN: Soft, non tender, bowel sounds present, no organomegaly. CENTRAL NERVOUS SYSTEM: Awake, alert, oriented x 3. SKIN: No rashes, no swelling. LYMPHATICS: No peripheral lymphadenopathy. MUSCULOSKELETAL: No joint swelling, erythema or tenderness. EXTREMITIES: No cyanosis or clubbing.Weak. BACK: No deformity, no pressure ulcer. GENITOURINARY: No dysuria or hematuria. Vital Sign (Last 12 Hours) 07/19/24 07/19/24 07/19/24 07/19/24 04:00 06:59 06:59 08:00 Temp 97.5 97.3 Pulse 87 88 88 92 Resp 20 19 20 20 B/P (MAP) 132/57 153/93 Pulse Ox 93 93 O2 Delivery CPAP N/A Room Air Room Air FiO2 21 21 07/19/24 07/19/24 07/19/24 11:19 11:19 11:41 Temp 97.7 Pulse 70 70 80 Resp 20 19 18 B/P (MAP) 122/75 Pulse Ox 95 O2 Delivery N/A Room Air Room Air FiO2 21 21 Intake & Output (last 24hrs) 07/18/24 07/18/24 07/19/24 15:00 23:00 07:00 Intake Total 50.0 ml Balance 50.0 ml LABS: Laboratory: Test 07/18/24 04:25 07/17/24 16:10 Range/Units White Blood Count 6.7 4.8-10.8 K/uL Red Blood Count 3.47 L 4.00-5.50 MIL/uL Hemoglobin 8.8 L 12.0-16.0 g/dL Hematocrit 27.8 L 36-48 % Mean Corpuscular Volume 80.1 79-99 fL Mean Corpuscular Hemoglobin 25.4 L 27.0-33.0 pg Mean Corpuscular Hemoglobin Concent 31.7 L 32.0-36.0 g/dL Red Cell Distribution Width 17.4 H 11.0-15.5 % Platelet Count 272 130-400 K/uL Mean Platelet Volume 10.0 7.5-10.5 fL Immature Granulocyte % (Auto) 0.5 0-1 % Neutrophils (%) (Auto) 78.9 H 40.0-77.0 % Lymphocytes (%) (Auto) 11.0 L 21.0-51.0 % Monocytes (%) (Auto) 7.8 3.0-13.0 % Eosinophils (%) (Auto) 1.5 0.0-8.0 % Basophils (%) (Auto) 0.3 0.0-5.0 % Neutrophils # (Auto) 5.3 1.8-7.7 K/uL Lymphocytes # (Auto) 0.7 L 1.0-4.8 K/uL Monocytes # (Auto) 0.5 0.1-1.0 K/uL Eosinophils # (Auto) 0.10 0.00-0.70 K/uL Basophils # (Auto) 0.02 0.00-0.20 K/uL Absolute Immature Granulocyte (auto 0.03 0-1 K/uL Nucleated Red Blood Cells 0.0 0.0-0.19 % Sodium Level 144 136-145 mmol/L Potassium Level 3.2 L 3.5-5.1 mmol/L Chloride Level 107 101-111 mmol/L Carbon Dioxide Level 32 21-32 mmol/L Blood Urea Nitrogen 33 H 7-18 mg/dL Creatinine 1.3 H 0.5-1.0 mg/dL Glomerular Filtration Rate Calc 40 >90 mL/min Random Glucose 97 70-105 mg/dL Total Calcium 8.7 8.5-10.1 mg/dL Magnesium Level 2.40 1.80-2.40 mg/dL B-Type Natriuretic Peptide 127 H 0-100 pg/mL Prothrombin Time 10.7 9.6-11.6 SEC Prothromb Time International Ratio 1.01 0.85-1.15 CHEST 1VW HISTORY: Congestion COMPARISON: 07/17/2024 FINDINGS: A frontal projection of the chest was obtained. Bilateral pulmonary infiltrates are seen with right more than left worse from previous study. The heart is borderline enlarged. All the lines and tubes are again seen in place. Aortic calcifications are seen. IMPRESSION: 1. Bilateral pulmonary infiltrates with right more than left worse from previous study. ASSESSMENT: Pneumonia with E coli and Batsheva albicans. Bilateral pleural effusion. History of pleural effusions with multiple thoracentesis with the last one in May of 2024. Atrial fibrillation. CAD. Hypercholesterolemia. COPD. Elevated D-dimer, PE ruled out. Renal failure. Anemia. Hypokalemia. Debility. Anemia. PLAN: Case management evaluation for referral to [place]. Continue Zosyn IV. Continue doxycycline p.o. Continue bronchodilators. Continue Tessalon Perles 200 mg t.i.d. Continue bronchodilators. Oxygen support to keep O2 sat greater than 92%. Windmill Technician consulted and following. Continue Hypokalemia protocol. Continue Physical therapy. Avoid nephrotoxic medications. Continue iron supplements. Follow operating room tech's recommendations This case was reviewed and discussed with my supervising physician and the above assessment and plan was formulated and agreed upon. EVELIO MAI Jul 19, 2024 15:35
--- NOTE | 2024-07-19 15:53 | HMCIMG ---
CHEST 1VW CLINICAL HISTORY: pleural effusion COMPARISON: 07/19/2024 TECHNIQUE: Single view of the chest was obtained. FINDINGS: There is mild bilateral blunting of the costophrenic angles and significant interval improvement in the and underlying pulmonary edema or congestive heart failure. The cardiac size appears to be enlarged but likely stable. The bony structures are unchanged. IMPRESSION: Resolving congestive heart failure and bilateral pleural effusion
[2024-07-19 17:16] LABS: BODY FLUID RBC 233 /cu. mm.; BODY FLUID WBC 125 /cu. mm.
[2024-07-19 17:26] LABS: APPEARANCE BODY FLUID CLEAR (CLEAR); COLOR,BODY FLUID YELLOW (LT YELLOW); SPECIMENTYPE,BODY FLUID PLEURAL; TOTAL VOLUME,BODY FLUID 1650 mL
[2024-07-19 17:27] LABS: GLUCOSE PLEURAL FLUID 106; PH PLEURAL FLUID 6; PROTEIN PLEURAL FLUID 2.4 mg/dL
[2024-07-19 17:51] LABS: BF LYMPHOCYTE 9 %; BF MACROPHAGE 34; BF MONOCYTE 1 %; BF OTHER CELLS 6; BF TOTAL CELLS COUNTED 100
--- NOTE | 2024-07-19 23:12 | PN ---
[facility] PROGRESS NOTE Date Patient Seen: Jul 19, 2024 Time of Visit: 23:09 Supervising Physician: BIJAN KAT MD Primary Care Physician: [Dr. Chin ] Outpatient Specialists: [ ] Inpatient Consults: [ BIS team: pulmo] PROBLEM LIST: Recurrent pleural effusion to the right lung Acute hypoxic respiratory failure Atrial fibrillation Leukopenia Acute kidney injury on top of CKD Essential hypertension INTERVAL HISTORY: 07/19/2024 Patient is currently on 1 L/min O2 awake, alert, well hydrated complains of dyspnea on exertion complains of orthopnea no fevers, no chills, no nausea or vomiting Scheduled for thoracentesis of the right lung today REVIEW OF SYSTEMS: 12 point ROS reviewed with patient. Pertinent positives mentioned above. Otherwise negative. PHYSICAL EXAM: GENERAL: alert, weak, awake oriented x 3 HEENT: EOMI, Sclera non icteric, moist mucosa , extremely hard of hearing NECK: Supple, no JVD, trachea midline LUNGS: Crackles to the right lung base HEART: Regular rate and rhythm. Normal S1 and S2, without murmurs ABD: Abdomen soft, nontender. Bowel sounds present EXT: No clubbing cyanosis or edema NEURO: Alert and oriented to person, follows commands Vital Signs (last 8hr) Date Time Temp Pulse Resp B/P (MAP) Pulse Ox O2 Delivery O2 Flow Rate FiO2 07/19/24 20:00 99.1 84 20 135/73 97 Room Air 07/19/24 18:49 84 19 07/19/24 18:48 80 20 N/A Room Air 21 07/19/24 16:00 98.2 96 18 131/67 95 Room Air 21 LABS: Hematology Labs: Test 07/18/24 04:25 Range/Units White Blood Count 6.7 4.8-10.8 K/uL Red Blood Count 3.47 L 4.00-5.50 MIL/uL Hemoglobin 8.8 L 12.0-16.0 g/dL Hematocrit 27.8 L 36-48 % Mean Corpuscular Volume 80.1 79-99 fL Mean Corpuscular Hemoglobin 25.4 L 27.0-33.0 pg Mean Corpuscular Hemoglobin Concent 31.7 L 32.0-36.0 g/dL Red Cell Distribution Width 17.4 H 11.0-15.5 % Platelet Count 272 130-400 K/uL Mean Platelet Volume 10.0 7.5-10.5 fL Immature Granulocyte % (Auto) 0.5 0-1 % Neutrophils (%) (Auto) 78.9 H 40.0-77.0 % Lymphocytes (%) (Auto) 11.0 L 21.0-51.0 % Monocytes (%) (Auto) 7.8 3.0-13.0 % Eosinophils (%) (Auto) 1.5 0.0-8.0 % Basophils (%) (Auto) 0.3 0.0-5.0 % Neutrophils # (Auto) 5.3 1.8-7.7 K/uL Lymphocytes # (Auto) 0.7 L 1.0-4.8 K/uL Monocytes # (Auto) 0.5 0.1-1.0 K/uL Eosinophils # (Auto) 0.10 0.00-0.70 K/uL Basophils # (Auto) 0.02 0.00-0.20 K/uL Absolute Immature Granulocyte (auto 0.03 0-1 K/uL Nucleated Red Blood Cells 0.0 0.0-0.19 % Chemistry Labs: Test 07/19/24 15:51 07/18/24 04:25 Range/Units Lactate Dehydrogenase 349 H 81-234 U/L Total Protein 6.3 6.0-8.3 g/dL Sodium Level 144 136-145 mmol/L Potassium Level 3.2 L 3.5-5.1 mmol/L Chloride Level 107 101-111 mmol/L Carbon Dioxide Level 32 21-32 mmol/L Blood Urea Nitrogen 33 H 7-18 mg/dL Creatinine 1.3 H 0.5-1.0 mg/dL Glomerular Filtration Rate Calc 40 >90 mL/min Random Glucose 97 70-105 mg/dL Total Calcium 8.7 8.5-10.1 mg/dL Magnesium Level 2.40 1.80-2.40 mg/dL B-Type Natriuretic Peptide 127 H 0-100 pg/mL DIAGNOSTICS / RADIOLOGY RESULTS: Large pleural effusion to the right lung PLAN - thoracentesis to be done today at bedside - consent obtained - Risks and benefits addressed NEURO: Minimize central acting medications as possible. Maintain fall precautions, adequate lighting during the day PULMONARY: Supplemental 02 as needed. Maintain aspiration precautions at all times CARDIOVASCULAR: Follow hemodynamics. Vital signs per facility protocol GI & NUTRITION: Continue with nutritional support. Continue stool softeners and laxatives as needed. KIDNEYS & ELECTROLYTES: Strict monitoring of intake, output and overall fluid balance. Avoid nephrotoxic medications to the extent possible. Medications to be dosed according to renal function. Monitor electrolytes and replace as needed ENDOCRINE: Maintain blood glucose between 100-180 at all times. Hypoglycemia protocol in place INFECTIOUS DISEASE: Trend temperature, WBC and procalcitonin level Follow cultures, deescalate antibiotics as soon as possible. Panculture if new onset fever ONCOLOGY/HEMATOLOGY/COAGULATION: Monitor for s/s of bleeding Monitor hemoglobin, coagulation studies as needed SKIN: Pressure ulcer prevention per facility protocol Specialty mattress ORTHO/REHAB: Continue PT/OT Prophylaxis: Continue GI and DVT prophylaxis Code Status: Full Resuscitation Disposition: As per attending This progress note was scribed by Leroy Kim on my behalf and I can attest to the accuracy of the note I personally scribed for BIJAN KAT MD ([email or web address]) on 07/19/24 at 23:11. Electronically submitted by Leroy Kim ([email or web address]). BIJAN KAT MD Jul 19, 2024 23:11
--- NOTE | 2024-07-19 23:37 | PRN ---
Procedure: Thoracentesis Procedure Note Thoracentesis: Indication: Large pleural effusion to the right lung A time-out was completed verifying correct patient, procedure, site, positioning, and special equipment if applicable. The patients right side was prepped and draped in a sterile manner after the appropriate infiltration level was confirmed by ultrasound. 1% lidocaine was used anesthetize the surrounding skin. A finder needle was then used to locate fluid and clear yellow fluid was obtained. A 10-blade scalpel used to make the incision. The thoracentesis catheter was then threaded without difficulty. The patient had 1500 mL of clear yellow fluid removed. A post-procedure chest x-ray was ordered and the fluid will be sent for several studies. Estimated Blood Loss: 5 ml The patient tolerated the procedure well and there were no complications. Post operative chest x-ray does not show evidence of pneumothorax post thoracentesis and effusion has resolved almost completely. I personally scribed for BIJAN KAT MD ([email or web address]) on 07/19/24 at 23:37. Electronically submitted by Leroy Kim ([email or web address]). BIJAN KAT MD Jul 19, 2024 23:37
[2024-07-20] VITALS (10 sets, daily range): BP systolic 145–157; BP diastolic 65–78; PULSE 68–93; RESP 16–20; TEMP 98–98.9; O2SAT 92–96
--- NOTE | 2024-07-20 00:58 | HMCSR ---
APPROVED REPORT EXAM: Two-dimensional and M-mode echocardiogram with Doppler and color Doppler. INDICATION ICD: Dyspnea on excertion 2D Dimensions RVDd3.2 cmLVEF(%)73.8 (>50%)LVED Vol(simp.)129.0 mL IVSd1.5 (0.7-1.1cm)FS(%)42 %LVES Vol(simp.)59.0 mL LVDd4.2 (3.8-5.6cm)LA (2D)5.3 (1.6-4.0cm)LVEF(%, simp.)54 % PWd1.9 (0.7-1.1cm)Ao Root(2D)3.0 (2.0-3.7cm) LVDs2.4 (2.5-4.0cm)LVOT diam2.0 (1.8-2.4cm) IVC diam2.2 cm Deformation Strain Apical 4-14.0 % Apical 2-17.0 % Apical 3-18.0 % Global Strain-16.0 % M-Mode Dimensions EPSS0.2 cm LA (MM)5.6 (1.6-4.0cm) Ao Root(MM)2.6 (2.0-3.7cm) Aortic Valve AoV Vmax1.8 m/Iwona Peak GR12.7 mmHgLVOT Vmax1.0 m/s AoV VTI0.4 mAo Mean GR6.2 mmHgLVOT VTI0.23 m LATRELL (VMAX)2.0 cm2Al P1/2T269 msAVA (VTI) 2.0 cm2 Mitral Valve MV E Yqau872.6 cm/sDECEL Xruj815 msMR RRN207 cm2 MV A Vmax61.6 cm/sP 1/2 T48 ms E/A ratio2.6MVA (PHT)4.6 cm2 TDI E/E' Nldzka40.4 Left Ventricle The left ventricle is normal in size. No regional wall motion abnormalities noted. Severe concentric left ventricular hypertrophy. Left ventricular systolic function is low normal, estimated LVEF 50 to 55%. Stage III diastolic dysfunction. Right Ventricle The right ventricle is normal size. Right ventricular systolic function is mildly reduced. Atria The left atrium is severely dilated. The right atrium is severely dilated. Aortic Valve Aortic valve is trileaflet. The leaflets are thickened and calcified. Moderate aortic regurgitation, Pressure half-time 269 ms. There is no aortic valvular stenosis. Mitral Valve The mitral valve is normal in structure and function. The leaflets are thickened and calcified. Moder ate-severe mitral regurgitation. There is no mitral valve stenosis. Tricuspid Valve The tricuspid valve is normal in structure and function. Trace tricuspid regurgitation. RVSP is bean l. Pulmonic Valve Pulmonic valve is not well visualized. Great Vessels The aortic root is normal in size. IVC is dilated and collapses >50% with inspiration. Pericardium Trace pericardial effusion. No echo indications of pericardial tamponade. Conclusion The left atrium is severely dilated. The right atrium is severely dilated. Severe concentric left ventricular hypertrophy. No regional wall motion abnormalities noted. Left ventricular systolic function is low normal, estimated LVEF 50 to 55%. Stage III diastolic dysfunction. Moderate aortic regurgitation, Pressure half-time 269 ms. Moderate-severe mitral regurgitation. Trace tricuspid regurgitation (likely underestimated). PASP is normal, but is likely underestimated. Trace pericardial effusion.
--- NOTE | 2024-07-20 10:56 | PN ---
INFECTIOUS DISEASE PROGRESS NOTE Date of Service: Jul 20, 2024 SUBJECTIVE: This is [place] 88[place]year[place] past medical history of pleural effusions with multiple thoracentesis with the last recently done in May of 2024, Spinal cancer, Atrial fibrillation, CAD, COPD and Hypercholesterolemia who presented to the emergency room with chief complaint of shortness of breaths and productive cough. A CT of the chest done on admission showed moderate right and small left pleural effusion and also right lower lobe pneumonia. Patient was started on Zosyn IV every 8 hours and doxycycline p.o. b.i.d. Patient had an elevated D-dimer reading of 1304, a V/Q scan was obtained and was negative for PE. Sputum culture was collected and final results came back positive for E coli and Batsheva albicans. Undercover Cop have been consulted and following patient. Patient was seen and examined at bedside in room 402. Patient is awake, alert and oriented x3. Patient is status post right thoracentesis with 1.5L removed on 07/19/2024. No fever, temperature is 99.0. Patient has been referred to [place] and pending insurance approval. PHYSICAL EXAM EYES: Anicteric. Pupils equal and reactive. HENT: No oral thrush seen, moist Oral mucosa. Hard of hearing, uses hearing aids. NECK: Supple, no JVD or thyromegaly. LUNGS: Good air entry. Crackles bilaterally. Productive cough. CARDIOVASCULAR: S1, S2 regular. No murmur heard. ABDOMEN: Soft, non tender, bowel sounds present, no organomegaly. CENTRAL NERVOUS SYSTEM: Awake, alert, oriented x 3. SKIN: No rashes, no swelling. LYMPHATICS: No peripheral lymphadenopathy. MUSCULOSKELETAL: No joint swelling, erythema or tenderness. EXTREMITIES: No cyanosis or clubbing.Weak. BACK: No deformity, no pressure ulcer. GENITOURINARY: No dysuria or hematuria. Vital Sign (Last 12 Hours) 07/19/24 07/20/24 07/20/24 07/20/24 23:16 00:00 04:00 06:32 Temp 98.2 98.1 Pulse 77 89 79 80 Resp 19 20 20 18 B/P (MAP) 145/73 147/66 Pulse Ox 92 92 O2 Delivery Room Air Room Air 07/20/24 07/20/24 06:35 08:06 Temp 99.0 Pulse 80 86 Resp 16 17 B/P (MAP) 157/78 Pulse Ox 91 O2 Delivery N/A Room Air FiO2 21 Intake & Output (last 24hrs) 07/19/24 07/19/24 07/20/24 15:00 23:00 07:00 Intake Total 1800 ml 50.0 ml Output Total 300 ml Balance 1800 ml -250.0 ml LABS: Laboratory: Test 07/19/24 16:05 07/19/24 15:51 Range/Units Body Fluid Source PLEURAL Body Fluid Volume 1650 mL Body Fluid Color YELLOW LT YELLOW Body Fluid Supernatant Appearance CLEAR CLEAR Body Fluid WBC 125 /cu. mm. Body Fluid RBC 233 /cu. mm. Body Fluid Neutrophils 50.0 % Body Fluid Lymphocytes 9 % Body Fluid Monocytes % 1 % Body Fluid Macrophages (%) 34 Body Fluid Other Cells (%) 6 Pleural Fluid pH 6 Pleural Fluid Total Protein 2.4 mg/dL Pleural Fluid LDH 111 U/L Pleural Fluid Glucose 106 Lactate Dehydrogenase 349 H 81-234 U/L Total Protein 6.3 6.0-8.3 g/dL CHEST 1VW HISTORY: Congestion COMPARISON: 07/17/2024 FINDINGS: A frontal projection of the chest was obtained. Bilateral pulmonary infiltrates are seen with right more than left worse from previous study. The heart is borderline enlarged. All the lines and tubes are again seen in place. Aortic calcifications are seen. IMPRESSION: 1. Bilateral pulmonary infiltrates with right more than left worse from previous study. ASSESSMENT: Pneumonia with E coli and Batsheva albicans. Bilateral pleural effusion more on the right, status post right thoracentesis with 1.5L removed on 07/19/2024. History of pleural effusions with multiple thoracentesis with the last one in May of 2024. Atrial fibrillation. CAD. Hypercholesterolemia. COPD. Elevated D-dimer, PE ruled out. Renal failure. Anemia. Hypokalemia. Debility. Anemia. PLAN: Case management evaluation for referral to [place]. Continue Zosyn IV. Continue doxycycline p.o. Continue bronchodilators. Continue Tessalon Perles 200 mg t.i.d. Continue bronchodilators. Oxygen support to keep O2 sat greater than 92%. Undercover Cop consulted and following. Continue Hypokalemia protocol. Continue Physical therapy. Avoid nephrotoxic medications. Continue iron supplements. Follow automobile brakes bonder's recommendations This case was reviewed and discussed with my supervising physician and the above assessment and plan was formulated and agreed upon. ATTESTATION BY PHYSICIAN I have seen and examined the patient. I reviewed the documentation, medical decision making, and treatment plan as noted by the mid-level provider above. I agree with the findings and plan of care. TAMRA HOLT MD, MIRTA L [facility] Jul 20, 2024 10:56
--- NOTE | 2024-07-20 13:01 | NUR ---
nurse note patient missed morning dose of tessalon pearls and guaifenesin due to nurse having two rapids/codes and other staff in rooms as well.
[2024-07-20] MEDS ORDERED: DOXY100T2 PO (15:57)
--- NOTE | 2024-07-20 16:40 | NUR ---
DISCHARGE gave patient discharge paperwork, educated regarding diet, activity, medications, follow up visits, signs and symptoms to watch for/return to ER. answered questions, patient and family understood. patient to be transported via [facility] vehicle to [place] from hospital. called report to ALLAN Cartwright, answered questions.
--- NOTE | 2024-07-20 16:45 | NUR ---
transport arrived from [place]
--- NOTE | 2024-07-20 21:22 | PN ---
[facility] PROGRESS NOTE Date Patient Seen: Jul 20, 2024 Time of Visit: 21:19 Supervising Physician: BIJAN KAT MD Primary Care Physician: [Dr. Chin ] Outpatient Specialists: [ ] Inpatient Consults: [ BIS team: pulmo] PROBLEM LIST: Recurrent pleural effusion to the right lung Status post thoracentesis of the right lung 07/19/2024 1 liters of fluid removed via thoracentesis Acute hypoxic respiratory failure Atrial fibrillation Leukopenia Acute kidney injury on top of CKD Essential hypertension INTERVAL HISTORY: 07/20/2024 Patient doing better today She is off oxygen she is afebrile, no distress, well hydrated good appetite, no nausea or vomiting good urinary output denies chest pain pending discharge REVIEW OF SYSTEMS: 12 point ROS reviewed with patient. Pertinent positives mentioned above. Otherwise negative. PHYSICAL EXAM: GENERAL: alert, weak, awake oriented x 3 HEENT: EOMI, Sclera non icteric, moist mucosa , extremely hard of hearing NECK: Supple, no JVD, trachea midline LUNGS: Crackles to the right lung base HEART: Regular rate and rhythm. Normal S1 and S2, without murmurs ABD: Abdomen soft, nontender. Bowel sounds present EXT: No clubbing cyanosis or edema NEURO: Alert and oriented to person, follows commands LABS: Chemistry Labs: Test 07/19/24 15:51 Range/Units Lactate Dehydrogenase 349 H 81-234 U/L Total Protein 6.3 6.0-8.3 g/dL DIAGNOSTICS / RADIOLOGY RESULTS: [ Post thoracentesis x-ray reviewed ] PLAN - follow results from pleural effusion - hemodynamically stable from the pulmonary stand point NEURO: Minimize central acting medications as possible. Maintain fall precautions, adequate lighting during the day PULMONARY: Supplemental 02 as needed. Maintain aspiration precautions at all times CARDIOVASCULAR: Follow hemodynamics. Vital signs per facility protocol GI & NUTRITION: Continue with nutritional support. Continue stool softeners and laxatives as needed. KIDNEYS & ELECTROLYTES: Strict monitoring of intake, output and overall fluid balance. Avoid nephrotoxic medications to the extent possible. Medications to be dosed according to renal function. Monitor electrolytes and replace as needed ENDOCRINE: Maintain blood glucose between 100-180 at all times. Hypoglycemia protocol in place INFECTIOUS DISEASE: Trend temperature, WBC and procalcitonin level Follow cultures, deescalate antibiotics as soon as possible. Panculture if new onset fever ONCOLOGY/HEMATOLOGY/COAGULATION: Monitor for s/s of bleeding Monitor hemoglobin, coagulation studies as needed SKIN: Pressure ulcer prevention per facility protocol Specialty mattress ORTHO/REHAB: Continue PT/OT Prophylaxis: Continue GI and DVT prophylaxis Code Status: Full Resuscitation Disposition: As per attending I personally scribed for BIJAN KAT MD ([email or web address]) on 07/20/24 at 21:22. Electronically submitted by Leroy Kim ([email or web address]). BIJAN KAT MD Jul 20, 2024 21:22
--- NOTE | 2024-07-21 16:48 | DS ---
Discharge Summary Hospital Course Dictating discharge summary for 07/20/2024. HOSPITAL COURSE: This is a 88-year-old female with history of hypertension, atrial fibrillation, obesity, coronary artery disease, who presented to the hospital with cough, shortness of breath. The patient was found with hypoxic respiratory failure and pneumonia. The patient was started on broad-spectrum antibiotics including Zosyn and doxycycline. The patient was evaluated by curriculum counselor. The patient continued with persistent cough. The patient's home medications were resumed. Due to debility and the current antibiotics, the patient has been accepted and will go for SNF. FINAL DISCHARGE DIAGNOSES: Pneumoniaewith E coli and Batsheva albicans. Bilateral pleural effusion more on the right, status post right thoracentesis with 1.5L removed on 07/19/2024. History of pleural effusions with multiple thoracentesis with the last one in May of 2024. Atrial fibrillation. CAD. Hypercholesterolemia. COPD. Elevated D-dimer, PE ruled out. Renal failure. Anemia. Hypokalemia. Debility. Anemia. PLAN: Discharge patient to home today. Refer to medication reconciliation. This case was reviewed and discussed with my supervising physician and the above assessment and plan was formulated and agreed upon. ATTESTATION BY PHYSICIAN I have seen and examined the patient. I reviewed the documentation, medical decision making, and treatment plan as noted by the mid-level provider above. I agree with the findings and plan of care. TAMRA HOLT MD, MIRTA L FNP Jul 21, 2024 16:48
== END 2024-07-20 17:00 | DRG 177 ==
LOC: EDH 13:15 → EDHIP 20:27 → 4AH 07-12 18:53
PROVIDERS: ADMIT Internal Medicine Infectious Disease; ATTEND Internal Medicine Infectious Disease
PROC: 05HC33Z Insertion of Infusion Device into Left Basilic Vein, Percutaneous Approach (ICD-10-PCS; 2024-07-17)
PROC: B54NZZA Ultrasonography of Left Upper Extremity Veins, Guidance (ICD-10-PCS; 2024-07-17)
PROC: 5A09357 Assistance with Respiratory Ventilation, Less than 24 Consecutive Hours, Continuous Positive Airway Pressure (ICD-10-PCS; 2024-07-17)
PROC: 0W9930Z Drainage of Right Pleural Cavity with Drainage Device, Percutaneous Approach (ICD-10-PCS; principal; 2024-07-19)
DX: J15.5 Pneumonia due to Escherichia coli (principal); B37.1 Pulmonary candidiasis; J96.01 Acute respiratory failure with hypoxia; J44.0 Chronic obstructive pulmonary disease with (acute) lower respiratory infection; N17.9 Acute kidney failure, unspecified; J91.8 Pleural effusion in other conditions classified elsewhere; I48.91 Unspecified atrial fibrillation; D50.9 Iron deficiency anemia, unspecified; Z20.822 Contact with and (suspected) exposure to COVID-19; I25.10 Atherosclerotic heart disease of native coronary artery without angina pectoris; D72.819 Decreased white blood cell count, unspecified; E66.9 Obesity, unspecified; E78.00 Pure hypercholesterolemia, unspecified; E87.6 Hypokalemia; N18.9 Chronic kidney disease, unspecified; Z90.49 Acquired absence of other specified parts of digestive tract; Z90.710 Acquired absence of both cervix and uterus; Z79.899 Other long term (current) drug therapy; Z68.22 Body mass index [BMI] 22.0-22.9, adult
CPT/HCPCS: 36415; 71045; 71250; 78582; 80048; 80053; 80061; 81001; 82306; 82550; 82607; 82945; 83540; 83615; 83735; 83880; 83986; 84145; 84155; 84157; 84443; 84484; 85025; 85027; 85378; 85610; 85730; 86632; 86738; 87071; 87086; 87186; 87205; 87449; 87635; 87804; 89051; 93005; 93306; 93356; 94640; 94667; 94668; 99285; A9540; A9558; G0378; J1940; J2543; J7608

== ENCOUNTER → 2024-08-05 | Outpatient (CLI) | payer MEDICARE ==
[~2024-08-05] MED LIST changes: +DOXY100T2 PO
[2024-08-05 08:27] LABS: INR 0.97 (0.85-1.15); PROTHROMBIN TIME 10.3 SEC (9.6-11.6)
[2024-08-05 08:28] LABS: PARTIAL THROMBOPLASTIN TIME 25.7 SEC (26.3-35.5)
--- NOTE | 2024-08-05 09:15 | NUR ---
U/S GD RT THORACENTESIS TOLERATED PROCEDURE. PERFORMED BY DR Augustine HASTINGS. PUNCTURE SITE TO RT MID BACK. 2.0 LITERS OF YELLOW CLOUDY FLUID REMOVED. END OF PROCEDURE AT 0840. DRESSING DRY AND INTACT. NO BLEEDING NOTED. POST CHEST X RAY READ BY DR Augustine HASTINGS. PER DR HASTINGS SMALL PNEUMOTHORAX SEEN. KEEP PT 2 HOURS TO MONITOR FOR SHORTNESS OF BREATH. PT ASYMPTOMATIC. DENIES PAIN. A&O. EDUCATED PT ON IMPORTANCE OF VERBALIZING IF BECOME SHORT OF BREATH. VERBALIZED UNDERSTANDING.
--- NOTE | 2024-08-05 09:16 | HMCIMG ---
Exam Type: CHEST 1VW Clinical Information: POST THORACENTESIS Comparison: July 19, 2024 Findings and impression: Postthoracentesis right side demonstrates interval development of a small, 3% pneumothorax right apical. No other interval changes are seen. Patient will be held for 2 hours and a repeat chest x-ray would BE performed.
--- NOTE | 2024-08-05 10:19 | HMCIMG ---
ULTRASOUND GUIDED THORACENTESIS: INDICATION: PLEURAL EFFUSION. FLAT POLISHER: Dr. Hamilton TECHNIQUE: Informed consent was obtained. Timeout performed. All elements of maximal sterile barrier technique, including hand hygiene and cutaneous antisepsis were used. Patient was placed supine. Right lower back was prepped and draped in sterile fashion. Local anesthesia was applied. Then, under ultrasound guidance, a 5F centesis needle was advanced through the thoracic wall and into the pleural effusion. It yielded 2.0 L of fluid. The catheter was removed and sterile dressing applied. Blood pressure monitoring was performed during the procedure. After the procedure, chest x-ray was performed which confirms significant decrease in the amount of pleural fluid, and interval development of a 1-3% pneumothorax apical region right side for which a follow-up in 2 hours would be performed. Complications: None Blood loss: <5 mL. IMPRESSION: Successful ultrasound guided thoracentesis.
--- NOTE | 2024-08-05 11:15 | NUR ---
POST CHEST XRAY RT THORACENTESIS 2ND CHEST XRAY READ BY DR CUETO. PER DR CUETO OKAY TO DISCHARGE. DR CUETO SPOKE WITH PT REGARDING RESULT. PNEUMOTHORAX DECREASED IN SIZE. EDUCATED TO REPORT TO NEAREST ED IF SHORT OF BREATH OR CHEST PAIN. VERBALIZED UNDERSTANDING. DISCHARGE VIA WHEELCHAIR. DENIES PAIN AND SHORTNESS OF BREATH. A&O. O2 SATURATION ON ROOM AIR 99%.
--- NOTE | 2024-08-05 11:40 | HMCIMG ---
CHEST 1VW CLINICAL HISTORY: S/P RIGHT THORACENTESIS COMPARISON: 08/05/2024 TECHNIQUE: Single view of the chest was obtained. FINDINGS: There is resolving minimal right apical pneumothorax. The lung parenchyma is otherwise stable. There is reduction identified right pleural effusion. Cardia mediastinal silhouette and bony structures stable. IMPRESSION: Resolving small right apical pneumothorax.
== END | disposition home or self-care (01) ==
LOC: RAH 07:36
PROVIDERS: ATTEND Internal Medicine
DX: J90 Pleural effusion, not elsewhere classified (principal); I48.91 Unspecified atrial fibrillation; N17.9 Acute kidney failure, unspecified; I10 Essential (primary) hypertension; Z79.01 Long term (current) use of anticoagulants; Z79.899 Other long term (current) drug therapy; Z87.898 Personal history of other specified conditions
CPT/HCPCS: 32555; 71045 ×2; 85610; 85730; 36415; C1729